=== PATIENT | female | born 1995 | race Caucasian/White ===

== ENCOUNTER 2017-07-24 22:28 | Emergency (ER) | payer OTHER ==
[2017-07-24 22:46] VITALS: RESP 18
[2017-07-24] MEDS ORDERED: SODIUM CHLORIDE 0.9% 1,000 ML IV ONE (23:32)
[2017-07-24] MEDS ORDERED: RX INFO: IV CONTRAST WAS GIVEN 1 EACH MISC MISCELLANE PRN (23:32)
--- NOTE | 2017-07-25 00:09 | ED ---
General Adult HPI - General Source: patient Mode of arrival: ambulatory Limitations: no limitations <Renetta Soto - Last Filed: 07/25/17 02:03> <Carri Avina - Last Filed: 07/25/17 05:02> - General Chief complaint: Abdominal Pain Stated complaint: Abd Pain Time Seen by Provider: 07/24/17 22:48 - History of Present Illness Initial comments: Patient is a 22-year-old obese female with no significant past medical history who presents to the emergency department for evaluation of sudden onset of low abdominal pain. Patient reports that around 8:30 tonight she had the sudden onset of severe stabbing pain in her low abdomen, she reports that the pain was so intense she began to feel lightheaded and her vision darkened. Patient does report a history of syncopal events in the past. Patient reports the pain then resolved however he felt she needed to come to the emergency department for further evaluation. Patient does report that intermittently she is having waves of lower abdominal pain which occur without provocation resolve within seconds to minutes. She reports prior to onset of this pain she was in her usual state of health. She had a normal diet with him about her normal daily activities. Pain is associated with nausea, lightheadedness, near syncope. His any fevers, chills, dysuria, hematuria, change in bowel or bladder habits, chest pain, shortness of breath, palpitations. She reports she is on the differential shot for control that she hasn't had a menstrual cycle in a number of years. She has no previous history of any intra-abdominal pathologies or surgeries. (Renetta Soto) - Related Data Home Medications Medication Instructions Recorded Confirmed predniSONE 20 mg PO DAILY 07/24/17 07/24/17 Previous Rx's Medication Instructions Recorded Acetaminophen-Codeine 300-30mg 1 tab PO Q4H PRN #12 tablet 07/25/17 [Tylenol #3] Ciprofloxacin HCl [Cipro] 500 mg PO Q12HR 7 Days 07/25/17 metroNIDAZOLE [Flagyl] 500 mg PO TID 7 Days 07/25/17 Allergies Allergy/AdvReac Type Severity Reaction Status Date / Time No Known Allergies Allergy Verified 07/24/17 23:09 Review of Systems ROS Other: All systems not noted in ROS Statement are negative. Constitutional: Denies: fever, chills Eyes: Reports: vision change ENT: Denies: throat pain Respiratory: Denies: cough, dyspnea Cardiovascular: Denies: chest pain, palpitations Endocrine: Denies: fatigue Gastrointestinal: Reports: abdominal pain, nausea, vomiting. Denies: diarrhea, constipation, hematemesis, melena, hematochezia Genitourinary: Denies: urgency, dysuria, frequency, hematuria, discharge, abnormal menses Musculoskeletal: Denies: back pain Skin: Denies: rash, lesions Neurological: Denies: headache, weakness Psychiatric: Denies: anxiety, depression Hematological/Lymphatic: Denies: easy bleeding, easy bruising <Renetta Soto - Last Filed: 07/25/17 02:03> ROS Other: All systems not noted in ROS Statement are negative. <Carri Avina - Last Filed: 07/25/17 05:02> ROS Statement: Those systems with pertinent positive or pertinent negative responses have been documented in the HPI. Past Medical History Past Medical History: No Reported History History of Any Multi-Drug Resistant Organisms: None Reported Past Surgical History: No Surgical Hx Reported Past Psychological History: No Psychological Hx Reported Smoking Status: Never smoker Past Alcohol Use History: None Reported Past Drug Use History: None Reported - Past Family History Father Family Medical History: Diabetes Mellitus <Renetta Soto P - Last Filed: 07/25/17 02:03> General Exam Limitations: no limitations General appearance: alert, in no apparent distress Head exam: Present: atraumatic, normocephalic, normal inspection Eye exam: Present: normal appearance, PERRL, EOMI. Absent: scleral icterus, conjunctival injection, periorbital swelling ENT exam: Present: normal exam Neck exam: Present: normal inspection Respiratory exam: Present: normal lung sounds bilaterally. Absent: respiratory distress Cardiovascular Exam: Present: regular rate, normal rhythm GI/Abdominal exam: Present: soft. Absent: distended, tenderness, guarding Rectal exam: Present: deferred Extremities exam: Present: normal inspection, normal capillary refill Back exam: Present: normal inspection. Absent: CVA tenderness (R), CVA tenderness (L) Neurological exam: Present: alert, oriented X3 Psychiatric exam: Present: normal affect Skin exam: Present: warm, dry <Renetta Soto - Last Filed: 07/25/17 02:03> Medical Decision Making - Lab Data Result diagrams: 07/25/17 00:18 07/25/17 00:18 <Renetta Soto - Last Filed: 07/25/17 02:03> - Lab Data Result diagrams: 07/25/17 00:18 07/25/17 00:18 - Radiology Data Radiology results: report reviewed <Carri Avina - Last Filed: 07/25/17 05:02> - Medical Decision Making Patient was seen and evaluated Vital signs were reviewed History was obtained from the patient History of the sudden onset suprapubic abdominal pain causing the patient to have near-syncope History is concerning for possible ovarian torsion D torsion versus colicky pain secondary to kidney stone versus acute appendicitis versus gas pain At this time I will evaluate the patient with CBC, CMP, urinalysis, urine , transvaginal ultrasound as well as a computed tomography scan Labs with mild leukocytosis, urinalysis clean, patient not Patient care is signed out to Carri Avina PA-C who will follow-up on patient 's imaging and reevaluate the patient (Renetta Soto) this patient was reevaluated and is resting comfortably in bed. Patient CT abdomen and pelvis was showing evidence of possible colitis. It did take approximately 2 hours to receive the ultrasound report. It was never sent over by the radiologist. Eventually the radiologist did call me reports that he she had a normal transvaginal ultrasound. At this time I'll treat the patient for colitis. Discussed that could be infectious etiology as well as autoimmune relation. Patient will be started on Cipro and Flagyl. Discussed that she should follow-up with GI specialist. Discussed return to emergency department if any alarming signs or symptoms occur. Discussed clear liquid diet and return to the emergency department if any alarming signs symptoms occur. ( Carri Avina) - Lab Data Lab Results 07/25/17 07/25/17 07/25/17 Range/Units 00:18 00:18 00:18 WBC 10.7 H (3.8-10.6) k/uL RBC 4.50 (3.80-5.40) m/uL Hgb 13.6 (11.4-16.0) gm/dL Hct 41.7 (34.0-46.0) % MCV 92.7 (80.0-100.0) fL MCH 30.2 (25.0-35.0) pg MCHC 32.5 (31.0-37.0) g/dL RDW 13.7 (11.5-15.5) % Plt Count 337 (150-450) k/uL Neutrophils % 75 % Lymphocytes % 14 % Monocytes % 6 % Eosinophils % 3 % Basophils % 1 % Neutrophils # 8.0 H (1.3-7.7) k/uL Lymphocytes # 1.5 (1.0-4.8) k/uL Monocytes # 0.7 (0-1.0) k/uL Eosinophils # 0.3 (0-0.7) k/uL Basophils # 0.1 (0-0.2) k/uL Sodium 140 (137-145) mmol/L Potassium 4.3 (3.5-5.1) mmol/L Chloride 103 (98-107) mmol/L Carbon Dioxide 26 (22-30) mmol/L Anion Gap 11 mmol/L BUN 13 (7-17) mg/dL Creatinine 0.80 (0.52-1.04) mg/dL Est GFR (MDRD) Af Amer >60 (>60 ml/min/1.73 sqM) Est GFR (MDRD) Non-Af >60 (>60 ml/min/1.73 sqM) Glucose 107 H (74-99) mg/dL Calcium 9.3 (8.4-10.2) mg/dL Total Bilirubin 0.4 (0.2-1.3) mg/dL AST 18 (14-36) U/L ALT 31 (9-52) U/L Alkaline Phosphatase 65 (38-126) U/L Total Protein 7.1 (6.3-8.2) g/dL Albumin 4.1 (3.5-5.0) g/dL Urine Color Urine Appearance (Clear) Urine pH (5.0-8.0) Ur Specific Elliott (1.001-1.035) Urine Protein (Negative) Urine Glucose (UA) (Negative) Urine Ketones (Negative) Urine Blood (Negative) Urine Nitrite (Negative) Urine Bilirubin (Negative) Urine Urobilinogen (<2.0) mg/dL Ur Leukocyte Esterase (Negative) Urine HCG, Qual Not Detected (Not Detectd) 07/25/17 Range/Units 00:18 WBC (3.8-10.6) k/uL RBC (3.80-5.40) m/uL Hgb (11.4-16.0) gm/dL Hct (34.0-46.0) % MCV (80.0-100.0) fL MCH (25.0-35.0) pg MCHC (31.0-37.0) g/dL RDW (11.5-15.5) % Plt Count (150-450) k/uL Neutrophils % % Lymphocytes % % Monocytes % % Eosinophils % % Basophils % % Neutrophils # (1.3-7.7) k/uL Lymphocytes # (1.0-4.8) k/uL Monocytes # (0-1.0) k/uL Eosinophils # (0-0.7) k/uL Basophils # (0-0.2) k/uL Sodium (137-145) mmol/L Potassium (3.5-5.1) mmol/L Chloride (98-107) mmol/L Carbon Dioxide (22-30) mmol/L Anion Gap mmol/L BUN (7-17) mg/dL Creatinine (0.52-1.04) mg/dL Est GFR (MDRD) Af Amer (>60 ml/min/1.73 sqM) Est GFR (MDRD) Non-Af (>60 ml/min/1.73 sqM) Glucose (74-99) mg/dL Calcium (8.4-10.2) mg/dL Total Bilirubin (0.2-1.3) mg/dL AST (14-36) U/L ALT (9-52) U/L Alkaline Phosphatase (38-126) U/L Total Protein (6.3-8.2) g/dL Albumin (3.5-5.0) g/dL Urine Color Yellow Urine Appearance Clear (Clear) Urine pH 6.0 (5.0-8.0) Ur Specific Elliott 1.022 (1.001-1.035) Urine Protein Negative (Negative) Urine Glucose (UA) Negative (Negative) Urine Ketones Negative (Negative) Urine Blood Negative (Negative) Urine Nitrite Negative (Negative) Urine Bilirubin Negative (Negative) Urine Urobilinogen 2.0 (<2.0) mg/dL Ur Leukocyte Esterase Negative (Negative) Urine HCG, Qual (Not Detectd) - Radiology Data Borderline thickening of the wall of the sigmoid colon and could relate nonspecific colitis. Clinical correlation recommended. No evidence of renal stone or obstruction. (Carri Avina) Disposition <Renetta Soto Abelardo - Last Filed: 07/25/17 02:03> Time of Disposition: 03:53 <Carri Avina - Last Filed: 07/25/17 05:02> Clinical Impression: Colitis Disposition: HOME SELF-CARE Condition: Good Additional Instructions: patient advised to rest, increase fluids. Recommended clear liquid diet. Return to the emergency department if any alarming signs or symptoms occur. Complete her antibiotic prescription. Prescriptions: Acetaminophen-Codeine 300-30mg [Tylenol #3] 1 tab PO Q4H PRN #12 tablet PRN Reason: Pain Ciprofloxacin HCl [Cipro] 500 mg PO Q12HR 7 Days metroNIDAZOLE [Flagyl] 500 mg PO TID 7 Days Referrals: Asim Wise MD [Primary Care Provider] - 1-2 days Cameron Quiñonez MD [STAFF PHYSICIAN] - 1-2 days
[2017-07-25 00:29] LABS: Appearance,Urine Clear (Clear); Bilirubin,Urine Negative (Negative); Glucose,Urine (UA) Negative (Negative); Ketones,Urine Negative (Negative); Leukocyte Esterase,Urine Negative (Negative); Nitrite,Urine Negative (Negative); Protein,Urine Negative (Negative); Specific Gravity,Urine 1.022 (1.001-1.035); UA Billing (MACRO vs. MICRO) CHEM
[2017-07-25 00:32] LABS: Basophils # (A) 0.1 k/uL (0-0.2); Basophils % (A) 1 %; CH 30.8; CHCM 33.4; Eosinophils # (A) 0.3 k/uL (0-0.7); Eosinophils % (A) 3 %; HCT 41.7 % (34.0-46.0); HDW 2.28; HGB 13.6 gm/dL (11.4-16.0); Luc # (Auto) 0.15; Luc % (Auto) 1; Lymphocytes # (A) 1.5 k/uL (1.0-4.8); Lymphocytes % (A) 14 %; MCH 30.2 pg (25.0-35.0); MCHC 32.5 g/dL (31.0-37.0); MCV 92.7 fL (80.0-100.0); Mean Platelet Volume 7.5; Monocytes # (A) 0.7 k/uL (0-1.0); Monocytes % (A) 6 %; Neutrophils % (A) 75 %; RDW 13.7 % (11.5-15.5); WBC 10.7 k/uL (3.8-10.6); WBC (Perox) 10.56
[2017-07-25 00:45] LABS: ALT 31 U/L (9-52); AST 18 U/L (14-36); Alkaline Phosphatase 65 U/L (38-126); Anion Gap 11 mmol/L; Blood Urea Nitrogen 13 mg/dL (7-17); Calcium 9.3 mg/dL (8.4-10.2); Carbon Dioxide 26 mmol/L (22-30); Chloride 103 mmol/L (98-107); Glucose 107 mg/dL (74-99); Non-African American GFR(MDRD) >60 (>60 ml/min/1.73 sqM); Potassium 4.3 mmol/L (3.5-5.1); Sodium 140 mmol/L (137-145); Total Bilirubin 0.4 mg/dL (0.2-1.3); Total Protein 7.1 g/dL (6.3-8.2)
--- NOTE | 2017-07-25 02:20 | CT ---
EXAMINATION TYPE: CT abdomen pelvis w con DATE OF EXAM: 07/25/2017 COMPARISON: NONE HISTORY: lower abd pain, vomiting CT DLP: 837.50 mGycm Automated exposure control for dose reduction was used. TECHNIQUE: Helical acquisition of images was performed from the lung bases through the pelvis. CONTRAST: Performed without Oral Contrast and with IV Contrast, patient injected with 100 mL of Omnipaque 300. FINDINGS: Lung bases are clear. There is no pleural effusion. Liver spleen pancreas gallbladder appear normal. Bile ducts are not dilated. There is no adrenal mass . Kidneys show satisfactory contrast opacification. There is no hydronephrosis. There is no retroperi toneal adenopathy. There is no ascites. There is small umbilical hernia that contains fat. Appendix i s not seen. There is no sign of appendicitis. There is borderline wall thickening of the sigmoid colon. Bladder distends smoothly. There is no sign of a pelvic mass. I see no bony destructive process. IMPRESSION: THERE IS BORDERLINE THICKENING OF THE WALL OF THE SIGMOID COLON THAT COULD RELATE TO NONSPECIFIC COLI TIS. CLINICAL CORRELATION IS RECOMMENDED. NO EVIDENCE OF RENAL STONE OR OBSTRUCTION.
[2017-07-25 03:50] VITALS: BP 120/56; PULSE 83; TEMP 98.3
[2017-07-25] MEDS ORDERED: metroNIDAZOLE 500 MG TAB PO STA (03:52)
[2017-07-25] MEDS ORDERED: CIPROFLOXACIN HCL 500 MG TAB PO STA (03:52)
--- NOTE | 2017-07-25 07:59 | US ---
EXAMINATION TYPE: US transvaginal DATE OF EXAM: 07/25/2017 COMPARISON: NONE CLINICAL HISTORY: Pain. Pelvic pain TECHNIQUE: Transvaginal (TV) Date of LMP: unsure EXAM MEASUREMENTS: Uterus: 6.6 x 2.6 x 5.0 cm Endometrial Stripe: 0.50 cm Right Ovary: 2.6 x 2.1 x 2.0 cm Left Ovary: 2.8 x 1.8 x 2.5 cm 1. Uterus: Anteverted wnl 2. Endometrium: wnl 3. Right Ovary: wnl 4. Left Ovary: wnl Spectral, color and waveform doppler imaging shows good arterial and venous flow within the ovaries ; there is no evidence for ovarian torsion. 5. Bilateral Adnexa: wnl 6. Posterior cul-de-sac: wnl IMPRESSION: Normal transvaginal pelvic sonogram. No evidence of ovarian torsion. Normal uterus and endometrium.
== END 2017-07-25 04:13 | disposition home or self-care (01) ==
LOC: EC 22:28
DX: K52.9 Noninfective gastroenteritis and colitis, unspecified (principal); R42 Dizziness and giddiness; R55 Syncope and collapse; R11.0 Nausea; D72.829 Elevated white blood cell count, unspecified; E66.9 Obesity, unspecified; Z68.26 Body mass index [BMI] 26.0-26.9, adult; Z79.52 Long term (current) use of systemic steroids
CPT/HCPCS: 99284 ×2; 96360 ×3; 96361 ×2; 36415; 80053; 85025; 81003; 81025; 93975; 76830; 74177; Q9967

== ENCOUNTER 2019-01-05 07:33 | Outpatient (CLI) | payer OTHER, BC ==
[2019-01-05 08:25] VITALS: BP 131/63; RESP 18; TEMP 98.6
[2019-01-05 08:36] VITALS: PULSE 98
--- NOTE | 2019-01-14 08:05 | P.MSEPDOC ---
Presenting Problems - Arrival Data Date of Arrival on Unit: 01/05/19 Time of Arrival on Unit: 07:30 Mode of Transport: Ambulatory - Complaint OB-Reason for Admission/Chief Complaint: Rule Out PROM Comment: States she has bee leaking since 0500 Medical History - Information : 2 Para: 1 Term: 1 : 0 Abortions: Spontaneous or Elective: 0 Number of Living Children: 1 - Gestational Age Gestational Age by LUIS (wks/days): 36 Weeks and 4 Days Review of Systems - Review of Systems Constitutional: No problems Breast: No problems ENT: No problems Cardiovascular: No problems Respiratory: No problems Gastrointestinal: No problems Genitourinary: No problems Musculoskeletal: No problems Neurological: No problems Skin: No problems Vital Signs - Temperature Temperature: 98.6 F Temperature Source: Temporal Artery Scan - Pulse Right Pulse Oximetery Pulse Rate: 98 Pulse Assessment Method: Pulse Oximetry - Respirations Respiratory Rate: 18 Oxygen Delivery Method: Room Air O2 Sat by Pulse Oximetry: 98 - Blood Pressure Right Arm Blood Pressure: 131/63 Blood Pressure Mean: 85 Blood Pressure Source: Automatic Cuff Medical Screen Scoring (Pre) - Cervical Exam Dilation: 1-3 cm = 1 Membranes: Intact - Uterine Contractions Frequency: N/A Duration: N/A Intensity: N/A - Maternal Vital Signs Maternal Temperature: N/A Maternal Blood Pressure: N/A Signs of Preeclampsia: N/A Maternal Respirations: N/A - Pain Assessment Pain Location and Character: Lower, Back Pain Scale Used: Numeric (1 - 10) Pain Intensity: 3 Pain Management Goal: 0 Pain Description: Aching Pain Frequency: Constant Pain Duration: 48 Pain Duration Units: Hours Pain Behavior: Vocalization Effects of Pain: longer time completing tasks Pain Aggravating Factors: Standing Non-Pharmacological Interventions: Position/Reposition - Maternal Trauma Maternal Trauma: N/A - Assessment Baseline FHR: 145 Heart Rate - NICHD Category: Category I (Normal) = 0 NST: Reactive Position: N/A - Total Score Total Score (Pre): 1 Physician Notification (Pre) - Physician Notified Physician Notified Date: 01/05/19 Physician Notified Time: 08:10 Physician/Practitioner Notifed:: Dr. Bruno Spoke With: Dr. Bruno New Order Received: Yes - Notification Comment Comment: Complete SVE and call with results. Disposition - Disposition OB Disposition: Physician follow up in office, Discharge to home Discharge Date: 01/05/19 Discharge Time: 08:34 I agree with the RN Medical Screening Exam: Yes Risk & Benefit of care provided described in d/c instruction: Yes Diagnosis: FALSE LABOR BEFORE 37 COMPLETED WEEKS OF GEST, THIRD TRI
== END 2019-01-05 08:27 | disposition home or self-care (01) ==
LOC: FBPOP 07:33
PROVIDERS: ATTEND Obstetrics & Gynecology
DX: O47.03 False labor before 37 completed weeks of gestation, third trimester (principal); Z3A.36 36 weeks gestation of pregnancy
CPT/HCPCS: 59025; 99213

== ENCOUNTER 2019-01-13 07:22 | Outpatient (CLI) | payer OTHER, BC ==
[2019-01-13 08:01] VITALS: BP 110/72; PULSE 87; RESP 14; TEMP 97.8
--- NOTE | 2019-02-16 09:10 | P.MSEPDOC ---
Presenting Problems - Arrival Data Date of Arrival on Unit: 01/13/19 Time of Arrival on Unit: 07:35 Mode of Transport: Ambulatory - Complaint OB-Reason for Admission/Chief Complaint: Possible Onset of Labor Comment: pt reports contractions from this morning at 4 am Medical History - Information : 2 Para: 1 Term: 1 : 0 Abortions: Spontaneous or Elective: 0 Number of Living Children: 1 - Gestational Age Gestational Age by LUIS (wks/days): 37 Weeks and 5 Days Review of Systems - Review of Systems Constitutional: No problems Breast: No problems ENT: No problems Cardiovascular: No problems Respiratory: No problems Gastrointestinal: No problems Genitourinary: No problems Musculoskeletal: No problems Neurological: No problems Skin: No problems Vital Signs - Temperature Temperature: 97.8 F Temperature Source: Oral - Pulse Right Brachial Pulse Rate: 87 Pulse Assessment Method: Automatic Cuff - Respirations Respiratory Rate: 14 Oxygen Delivery Method: Room Air - Blood Pressure Right Arm Blood Pressure: 110/72 Blood Pressure Mean: 84 Blood Pressure Source: Automatic Cuff Medical Screen Scoring (Pre) - Cervical Exam Dilation: 1-3 cm = 1 Membranes: Intact - Uterine Contractions Frequency: > 5 minutes apart = 1 - Maternal Vital Signs Maternal Temperature: N/A Maternal Blood Pressure: N/A Signs of Preeclampsia: N/A Maternal Respirations: N/A - Pain Assessment Pain Scale Used: Numeric (1 - 10) Pain Intensity: 4 Pain Description: *Acute Pain Frequency: Occasional Pain Duration Units: Hours Pain Behavior: None Exhibited Pain Aggravating Factors: Contractions - Assessment Baseline FHR: 140 Heart Rate - NICHD Category: Category I (Normal) = 0 NST: Reactive Position: N/A Station: N/A - Total Score Total Score (Pre): 2 - Level of Risk Level of Risk: Low (0-5) Physician Notification (Pre) - Physician Notified Physician Notified Date: 01/13/19 Physician Notified Time: 08:08 Physician/Practitioner Notifed:: rachael Spoke With: rachael New Order Received: Yes - Notification Comment Comment: dr cano in department, reported pt visit with cervical exam, reactive nst. orders to discharged pt Disposition - Disposition OB Disposition: Physician follow up in office, Discharge to home Discharge Date: 01/13/19 Discharge Time: 08:20 I agree with the RN Medical Screening Exam: Yes Risk & Benefit of care provided described in d/c instruction: Yes Diagnosis: FALSE LABOR AT OR AFTER 37 COMPLETED WEEKS OF GESTATION
== END 2019-01-13 08:20 | disposition home or self-care (01) ==
LOC: FBPOP 07:22
PROVIDERS: ATTEND Obstetrics & Gynecology
DX: O47.1 False labor at or after 37 completed weeks of gestation (principal); Z3A.37 37 weeks gestation of pregnancy
CPT/HCPCS: 59025; 99213

== ENCOUNTER 2019-01-29 06:05 | Inpatient (IN) | payer BC, OTHER ==
[2019-01-29] MEDS ORDERED: LIDOCAINE 0.5% (PF) 5 MG/ML (50 ML SDV) SQ PRN (06:19)
[2019-01-29] MEDS ORDERED: CARBOPROST TROMETHAMINE 250 MCG/ML 1 ML AMP IM PRN (06:19)
[2019-01-29] MEDS ORDERED: OXYTOCIN 10 UNIT/ML 1 ML VIAL IM PRN (06:19)
[2019-01-29] MEDS ORDERED: TERBUTALINE 1 MG/ML VIAL SQ PRN (06:19)
[2019-01-29] MEDS ORDERED: METHYLERGONOVINE 0.2 MG/ML 1 ML AMP IM PRN (06:19)
[2019-01-29] MEDS ORDERED: OXYTOCIN 30 UNITS/500 ML NS 30 UNIT in SALINE 1 500ML.BAG IV SCH (06:30)
[2019-01-29 06:59] VITALS: BMI 30.7
[2019-01-29] MEDS: LACTATED RINGERS 1,000 ML IV SCH (07:02)
[2019-01-29 07:04] LABS: Basophils # (A) 0.1 k/uL (0-0.2); Basophils % (A) 1 %; Eosinophils # (A) 0.2 k/uL (0-0.7); Eosinophils % (A) 2 %; HCT 34.8 % (34.0-46.0); HGB 11.9 gm/dL (11.4-16.0); Lymphocytes # (A) 1.9 k/uL (1.0-4.8); Lymphocytes % (A) 22 %; MCH 30.2 pg (25.0-35.0); MCHC 34.2 g/dL (31.0-37.0); MCV 88.4 fL (80.0-100.0); Mean Platelet Volume 7.7; Monocytes # (A) 0.5 k/uL (0-1.0); Monocytes % (A) 5 %; Neutrophils # (A) 5.9 k/uL (1.3-7.7); Neutrophils % (A) 69 %; Platelet Count 308 k/uL (150-450); RBC 3.93 m/uL (3.80-5.40); RDW 13.6 % (11.5-15.5); WBC 8.5 k/uL (3.8-10.6)
--- NOTE | 2019-01-29 07:51 | P.HPOB ---
History of Present Illness H&P Date: 01/29/19 This is a 24-year-old white female 2 para 1001 EDC 01/29/2019 at 40 weeks gestation. Patient presents today for induction with favorable multiparous cervix. Fetus is been active throughout the . She denies vaginal bleeding or fluid leakage. history significant for blood type A+, rubella status immune. Group B strep cultures negative. VDRL, gonorrhea cultures, Chlamydia cultures, group B strep culture all negative. Hepatitis B surface antigen negative. Rubella st atus immune. One-hour Glucola 112. Past surgical history significant for colposcopy and wisdom teeth extracted. Current medications Zofran 4 mg when necessary, vitamin daily. ALLERGIES include ciprofloxacin to which reports her tongue and mouth swelling and hives, levofloxacin to which reports the same. Family history significant for diabetes mellitus, hypertension, thyroid issues. Social history patient is single, she works at [employer], she is been a nonsmoker and denies drug use. Obstetric history significant for normal spontaneous vaginal delivery 7 lbs. 13 oz. female in 2016. On exam this is a pleasant white female, 5 foot 9 inches, 208 pounds, blood pressure 114/70, vital signs are stable. The general physical exam is within normal limits. The cervix is 3-4 cm dilated, 70% effaced, -2 station, vertex presentation. Artificial amniorrhexis reveals clear fluid. heart rate is consistent with reactive NST. No maternal edema is noted. Impression: 40 week intrauterine , favorable multiparous cervix, here for elective induction of labor. All signs reassuring. Plan: Oxytocin per hospital protocol. Analgesic options have been reviewed with the patient. Close maternal and surveillance. Anticipate normal spontaneous vaginal delivery. Review of Systems Constitutional: Reports as per HPI Past Medical History Past Medical History: No Reported History History of Any Multi-Drug Resistant Organisms: None Reported Past Surgical History: No Surgical Hx Reported Additional Past Surgical History / Comment(s): wisdom teeth removed Past Anesthesia/Blood Transfusion Reactions: Unable to Obtain Additional Past Anesthesia/Blood Transfusion Reaction / Comment(s): no previous blood transfusion Past Psychological History: No Psychological Hx Reported Smoking Status: Never smoker Past Alcohol Use History: None Reported Past Drug Use History: None Reported - Past Family History Father Family Medical History: Diabetes Mellitus Medications and Allergies Home Medications Medication Instructions Recorded Confirmed Type Pedi Multivit No.25/Folic Acid 2 tab PO DAILY 01/13/19 01/29/19 History [Flintstones Multivit Chew Tab] Allergies Allergy/AdvReac Type Severity Reaction Status Date / Time ciprofloxacin [From Cipro] Allergy Anaphylaxis Verified 01/29/19 06:18 Exam Vital Signs Temp Pulse Resp BP Pulse Ox 01/29/19 06:50 96.0 F L 83 16 114/70 98 Intake and Output 01/28/19 01/29/19 01/29/19 22:59 06:59 14:59 Other: Weight 94.347 kg See dictation under HPI. Results Result Diagrams: 01/29/19 06:30 Assessment and Plan Assessment: 40 week intrauterine . Here for elective induction of labor, all signs reassuring. Plan: Close maternal and surveillance. Oxytocin per hospital protocol. Anticipating normal spontaneous vaginal delivery. Time with Patient: Less than 30
[2019-01-29] MEDS ORDERED: ROPIVACAINE 5MG/ML 20ML VIAL ONE (10:30)
[2019-01-29] MEDS ORDERED: fentaNYL (PF) 50 MCG/ML 5 ML AMP ONE (10:30)
[2019-01-29] MEDS ORDERED: SODIUM CHLORIDE 0.9% 100 ML BAG ONE (10:30)
[2019-01-29] MEDS ORDERED: ZOLPIDEM 5 MG TAB PO PRN (12:13)
[2019-01-29] MEDS ORDERED: BENZOCAINE/MENTHOL SPRAY 1 GM/SPRAY AEROSOL TOPICAL PRN (12:13)
[2019-01-29] MEDS ORDERED: diphenhydrAMINE 50 MG/ML 1 ML VIAL IVP PRN ×2 (12:13)
[2019-01-29] MEDS ORDERED: ACETAMINOPHEN TAB 325 MG TAB PO PRN (12:13)
[2019-01-29] MEDS ORDERED: diphenhydrAMINE ELIXIR 25 MG/10 ML CUP PO PRN (12:13)
[2019-01-29] MEDS ORDERED: SIMETHICONE 80 MG CHEWABLE PO PRN (12:13)
[2019-01-29] MEDS ORDERED: diphenhydrAMINE 25 MG CAP PO PRN (12:13)
[2019-01-29] MEDS ORDERED: LANOLIN CREAM 5 GM TUBE TOPICAL PRN (12:13)
[2019-01-29] MEDS ORDERED: diphenhydrAMINE 50 MG CAP PO PRN (12:13)
[2019-01-29] MEDS ORDERED: WITCH HAZEL 1 EACH MED..PAD TOPICAL PRN (12:13)
[2019-01-29] MEDS ORDERED: HYDROCORTISONE 2.5% RECTAL CREAM 30 GM TUBE RECTAL PRN (12:13)
--- NOTE | 2019-01-29 12:13 | P.PROBDLV ---
Vaginal Delivery Note - . Vaginal Delivery Note: This is a 24-year-old female 2 para 1001 EDC 01/30/1940 weeks gestation. Patient presented this morning for induction with favorable multiparous cervix. essentially unremarkable, rubella immune, group B strep cultures negative, blood type A positive. Please see my dictated history and physical for details. Artificial amniorrhexis earlier this morning revealed clear fluid. Oxytocin was started and titrated per hospital protocol. Patient became uncomfortable and requested epidural, this was placed without difficulty. She progressed well through the first stage of labor, heart tones were reassuring. She became completely dilated at 1145 hrs. and the second stage of labor started at that time. In usual sterile fashion. With excellent maternal expulsive efforts infant's head delivered occiput anterior and he restituted accordingly. There was no nuchal cord noted. The left or anterior shoulder was gently and easily delivered from underneath the pubic symphysis at which time the oropharynx, nasopharynx, and external nares were all bulb suctioned. Patient was officially delivered of a liveborn male infant at 1155 hours. Umbilical cord was doubly clamped and ligated, he was handed to waiting nurses for evaluation where scores of 9 and 9 at one and 5 minutes respectively were given. At this time the uterus was massaged. The placenta delivered spontaneously, it was inspected and noted to be intact with trivascular cord at 1200 hrs. The cervix, vagina, perineum, periurethral, and perirectal areas are all closely inspected. There are no lacerations or defects. Fundus is firm and in the midline, symmetric and 18 week size upon completion of delivery. All sponge needle and enhancement counts are correct. weighs 7 lbs. 11 oz. or 3480 g. The patient and her family are allowed to begin the bonding experience in the LDR. They are requesting circumcision further infant son.
[2019-01-29] MEDS ORDERED: OXYTOCIN 20 UNITS/1000 ML NS 1,000 ML IV SCH (12:15)
[2019-01-29] MEDS: SENNOSIDES-DOCUSATE SODIUM 1 EACH TAB PO SCH (21:43)
[2019-01-29] MEDS: IBUPROFEN 600 MG TAB PO PRN (21:45)
[2019-01-29 22:52] VITALS: RESP 16
[2019-01-29 23:40] VITALS: PULSE 71
[2019-01-30] MEDS: IBUPROFEN 600 MG TAB PO PRN ×2 (03:46→09:37)
[2019-01-30] MEDS: LACTATED RINGERS 1,000 ML IV SCH (04:40)
--- NOTE | 2019-01-30 06:41 | P.DS ---
Providers Date of admission: 01/29/19 06:05 Expected date of discharge: 01/30/19 Attending physician: Tash Bruno Primary care physician: [facility] Hospital Course: This is a 24-year-old female 2 para 1001 EDC 01/29/2018 at 40 weeks gestation. Patient presented for induction with favorable multiparous cervix. was unremarkable, rubella status immune, be strep cultures negative. Please see my dictated history and physical for details. Patient was admitted, artificial amniorrhexis revealed clear fluid. Oxytocin was started and titrated per hospital protocol. Epidural was placed per her request. She went on to deliver a liveborn male infant with scores of 9 and 9 at one and 5 minutes respectively. weighed 7 lbs. 11 oz. or 3480 g. There was an estimated blood loss recorded of 250 mL, no lacerations. Please see dictated delivery note for details. This morning the patient is doing well. She is voiding, ambulating and passing flatus without difficulty. Vital signs are stable and she is afebrile. [place] is doing well, circumcision will be performed at this time. Patient is judged to be in very good condition for discharge home. She will follow-up in the office with me in 6 weeks. I have reminded her no intercourse, tampons or douching. She will use [id number] Advil or Aleve, or Motrin, as directed by the bottle, up to 600 mg every 6 hours. She will call me with any fevers shakes or chills, foul smelling or copious lochia, with the passage of large blood clots, with any pain not alleviated by [id number] products, or indeed with any concerns. Breast-feeding is going well. We have briefly reviewed options for contraception and we will discuss this further in the office in 6 weeks. Patient Condition at Discharge: Good Plan - Discharge Summary Discharge Rx Participant: No New Discharge Prescriptions: No Action Pedi Multivit No.25/Folic Acid [Flintstones Multivit Chew Tab] 2 tab PO DAILY Discharge Medication List Pedi Multivit No.25/Folic Acid [Flintstones Multivit Chew Tab] 2 tab PO DAILY 01/13/19 [History] Follow up Appointment(s)/Referral(s): Tash Bruno MD [STAFF PHYSICIAN] - 6 Weeks Discharge Disposition: HOME SELF-CARE
[2019-01-30 08:58] VITALS: BP 91/45; TEMP 98.5
[2019-01-30] MEDS: SENNOSIDES-DOCUSATE SODIUM 1 EACH TAB PO SCH (09:37)
== END 2019-01-30 13:10 | disposition home or self-care (01) | DRG 807 ==
LOC: 4FBP 06:05
PROVIDERS: ADMIT Obstetrics & Gynecology; ATTEND Obstetrics & Gynecology
PROC: 10E0XZZ Delivery of Products of Conception, External Approach (ICD-10-PCS; principal; 2019-01-29)
PROC: 10907ZC Drainage of Amniotic Fluid, Therapeutic from Products of Conception, Via Natural or Artificial Opening (ICD-10-PCS; 2019-01-29)
PROC: 3E033VJ Introduction of Other Hormone into Peripheral Vein, Percutaneous Approach (ICD-10-PCS; 2019-01-29)
PROC: 00HU33Z Insertion of Infusion Device into Spinal Canal, Percutaneous Approach (ICD-10-PCS; 2019-01-29)
PROC: 3E0R3BZ Introduction of Anesthetic Agent into Spinal Canal, Percutaneous Approach (ICD-10-PCS; 2019-01-29)
DX: O80 Encounter for full-term uncomplicated delivery (principal); Z37.0 Single live birth; Z3A.40 40 weeks gestation of pregnancy; Z88.1 Allergy status to other antibiotic agents; Z82.49 Family history of ischemic heart disease and other diseases of the circulatory system; Z83.3 Family history of diabetes mellitus; Z83.49 Family history of other endocrine, nutritional and metabolic diseases
CPT/HCPCS: 85025; 86850; 86900; 86901

== ENCOUNTER 2020-07-15 12:50 | Outpatient (CLI) | payer BC ==
[2020-07-15 13:56] VITALS: BP 129/65; PULSE 105; RESP 16; TEMP 98.1
--- NOTE | 2020-08-11 08:46 | P.MSEPDOC ---
Presenting Problems - Arrival Data Date of Arrival on Unit: 07/15/20 Time of Arrival on Unit: 12:50 Mode of Transport: Ambulatory - Complaint OB-Reason for Admission/Chief Complaint: Other Comment: rash on both legs Medical History - Information : 3 Para: 2 Term: 2 : 0 Abortions: Spontaneous or Elective: 0 Number of Living Children: 2 - Gestational Age Gestational Age by LUIS (wks/days): 34 Weeks and 3 Days Review of Systems - Review of Systems Constitutional: No problems Breast: No problems ENT: No problems Cardiovascular: No problems Respiratory: No problems Gastrointestinal: No problems Genitourinary: No problems Musculoskeletal: No problems Neurological: No problems Skin: Rash, Itching Vital Signs - Temperature Temperature: 98.1 F Temperature Source: Oral - Pulse Bilateral Pulse Rate: 105 Pulse Assessment Method: Automatic Cuff - Respirations Respiratory Rate: 16 Oxygen Delivery Method: Room Air - Blood Pressure Right Arm Blood Pressure: 129/65 Blood Pressure Mean: 86 Blood Pressure Source: Automatic Cuff Medical Screen Scoring (Pre) - Cervical Exam Dilation: Exam Deferred Effacement: Exam Deferred Membranes: Intact - Uterine Contractions Frequency: N/A Duration: N/A Intensity: N/A - Maternal Vital Signs Maternal Temperature: N/A Maternal Blood Pressure: N/A Signs of Preeclampsia: N/A Maternal Respirations: N/A - Maternal Trauma Maternal Trauma: N/A - Assessment - Baby A Baseline FHR: 125 Heart Rate - NICHD Category: Category I (Normal) = 0 NST: Reactive Position: N/A Station: N/A - Total Score - Baby A Total Score - Baby A: 0 - Total Score - Baby B Total Score - Baby B: 0 - Total Score - Baby C Total Score - Baby C: 0 - Level of Risk - Baby A Level of Risk - Baby A: Low (0-5) - Level of Risk - Baby B Level of Risk - Baby B: Low (0-5) - Level of Risk - Baby C Level of Risk - Baby C: Low (0-5) Physician Notification (Pre) - Physician Notified Physician Notified Date: 07/15/20 Physician Notified Time: 13:13 New Order Received: Yes - Notification Comment Comment: d/c home to see medical doctor for rash Disposition - Disposition OB Disposition: Physician follow up in office, Discharge to home Discharge Date: 07/15/20 Discharge Time: 13:16 I agree with the RN Medical Screening Exam: Yes Risk & Benefit of care provided described in d/c instruction: Yes Diagnosis: RELATED CONDITIONS, UNSPECIFIED, THIRD TRIMESTER
== END 2020-07-15 14:03 | disposition home or self-care (01) ==
LOC: FBPOP 12:50
PROVIDERS: ATTEND Obstetrics & Gynecology
DX: O26.93 Pregnancy related conditions, unspecified, third trimester (principal); Z3A.34 34 weeks gestation of pregnancy
CPT/HCPCS: 59025; 99213

== ENCOUNTER 2020-07-15 13:26 | Emergency (ER) | payer BC, OTHER ==
[2020-07-15 13:32] VITALS: PULSE 90; RESP 16; TEMP 98.5
--- NOTE | 2020-07-15 14:14 | ED ---
Skin/Abscess/FB HPI - General Chief complaint: Skin/Abscess/Foreign Body Stated complaint: Rash - 34 wks preg Time Seen by Provider: 07/15/20 13:43 Source: patient, RN notes reviewed, old records reviewed Mode of arrival: ambulatory Limitations: no limitations - History of Present Illness Initial comments: This is a 25-year-old female DF for evaluation patient Dese for evaluation regarding bilateral lower currently rash. Patient outpatient lab testing and was seen and evaluated by [facility] [employer] for PE. Patient just, patient has bilateral lower extremities for evaluation of a severely itchy rash denying recent hot tub use, patient did shave legs. MD complaint: rash (Bilateral lower extremities.) -: days(s) Tetanus Up to Date: yes (Y) Location: LLE (On now), RLE Severity: moderate Severity scale (1-10): 5 (I I I had retractions take is likely show pupils) Consistency: constant Improves with: none Worsens with: none (R) Context: recent illness Associated symptoms: fever ( does a lot of phone number oldest ) Treatments Prior to Arrival: none - Related Data Home Medications Medication Instructions Recorded Confirmed Pedi Multivit No.25/Folic Acid 2 tab PO DAILY 01/13/19 07/15/20 [Flintstones Multivit Chew Tab] Previous Rx's Medication Instructions Recorded Amoxic-Pot Clav 875-125Mg 1 tab PO Q12HR #20 tablet 07/15/20 [Augmentin 875-125] Allergies Allergy/AdvReac Type Severity Reaction Status Date / Time ciprofloxacin [From Cipro] Allergy Anaphylaxis Verified 07/15/20 13:32 Review of Systems ROS Statement: Those systems with pertinent positive or pertinent negative responses have been documented in the HPI. ROS Other: All systems not noted in ROS Statement are negative. Past Medical History Past Medical History: No Reported History History of Any Multi-Drug Resistant Organisms: None Reported Past Surgical History: No Surgical Hx Reported Additional Past Surgical History / Comment(s): wisdom teeth removed Past Anesthesia/Blood Transfusion Reactions: Unable to Obtain Additional Past Anesthesia/Blood Transfusion Reaction / Comment(s): no previous blood transfusion Past Psychological History: No Psychological Hx Reported Smoking Status: Never smoker Past Alcohol Use History: None Reported Past Drug Use History: None Reported - Past Family History Father Family Medical History: Diabetes Mellitus General Exam Limitations: no limitations General appearance: alert, in no apparent distress Head exam: Present: atraumatic, normocephalic, normal inspection Eye exam: Present: normal appearance, PERRL, EOMI. Absent: scleral icterus, conjunctival injection, periorbital swelling ENT exam: Present: normal exam, mucous membranes moist Neck exam: Present: normal inspection. Absent: tenderness, meningismus, lymphadenopathy Respiratory exam: Present: normal lung sounds bilaterally. Absent: respiratory distress, wheezes, rales, rhonchi, stridor Cardiovascular Exam: Present: regular rate, normal rhythm, normal heart sounds. Absent: systolic murmur, diastolic murmur, rubs, gallop, clicks GI/Abdominal exam: Present: soft, normal bowel sounds. Absent: distended, tenderness, guarding, rebound, rigid Extremities exam: Present: normal inspection, full ROM, normal capillary refill. Absent: tenderness, pedal edema, joint swelling, calf tenderness Back exam: Present: normal inspection Neurological exam: Present: alert, oriented X3, CN II-XII intact Psychiatric exam: Present: normal affect, normal mood Skin exam: Present: warm, dry, intact, normal color, erythema, other (Patient does have significant bilateral lower Shorty rash with drainage and papular, pus tules). Absent: rash Course Vital Signs 07/15/20 13:30 Temperature 98.5 F Pulse Rate 90 Respiratory 16 Rate Blood Pressure 114/72 O2 Sat by Pulse 98 Oximetry - Reevaluation(s) Reevaluation #1: 07/15/20 15:17 Medical records reviewed Reevaluation #2: 07/15/20 15:17 Patient does have symptomatic treatment, itching is improved Reevaluation #3: 07/15/20 15:17 Spoke with patient regarding decision-making process, will follow up with OB Medical Decision Making - Medical Decision Making 25 female bilateral lower lower extremity folliculitis. Patient be treated for antibiotics, can be discharged home Disposition Clinical Impression: Folliculitis Narrative: BL LE Folliculitis Disposition: HOME SELF-CARE Condition: Good Instructions (If sedation given, give patient instructions): Folliculitis (ED) Prescriptions: Amoxic-Pot Clav 875-125Mg [Augmentin 875-125] 1 tab PO Q12HR #20 tablet Is patient prescribed a controlled substance at d/c from ED?: No Referrals: Nonstaff,Physician [Primary Care Provider] - 1-2 days
[2020-07-15] MEDS ORDERED: AMOXIC-POT CLAV 875MG STARTER PACK 2 TAB BTL PO STA (15:09)
[2020-07-15] MEDS ORDERED: AMOXIC-POT CLAV 875-125MG 1 EACH TAB PO STA (15:09)
[2020-07-15] MEDS ORDERED: MUPIROCIN 2% OINT 22 GM TUBE TOPICAL STA (15:21)
[2020-07-15 15:27] VITALS: BP 103/65
[2020-07-15] MEDS ORDERED: MUPIROCIN 2% OINT 22 GM TUBE TOPICAL SCH (16:00)
== END 2020-07-15 15:32 | disposition home or self-care (01) ==
LOC: EC 13:26
DX: O99.713 Diseases of the skin and subcutaneous tissue complicating pregnancy, third trimester (principal); L73.9 Follicular disorder, unspecified; Z3A.34 34 weeks gestation of pregnancy; Z88.1 Allergy status to other antibiotic agents
CPT/HCPCS: 99283

== ENCOUNTER 2020-08-14 14:41 | Inpatient (IN) | payer BC, OTHER ==
[2020-08-14] MEDS ORDERED: TERBUTALINE 1 MG/ML VIAL SQ PRN (15:05)
[2020-08-14] MEDS ORDERED: LIDOCAINE 0.5% (PF) 5 MG/ML (50 ML SDV) SQ PRN (15:05)
[2020-08-14] MEDS ORDERED: OXYTOCIN 10 UNIT/ML 1 ML VIAL IM PRN (15:05)
[2020-08-14] MEDS ORDERED: CARBOPROST TROMETHAMINE 250 MCG/ML 1 ML AMP IM PRN (15:05)
[2020-08-14] MEDS ORDERED: METHYLERGONOVINE 0.2 MG/ML 1 ML AMP IM PRN (15:05)
[2020-08-14] MEDS ORDERED: LACTATED RINGERS 1,000 ML IV SCH ×2 (15:15)
[2020-08-14] MEDS ORDERED: OXYTOCIN 30 UNITS/500 ML NS 30 UNIT in SALINE 1 500ML.BAG IV SCH (15:15)
[2020-08-14 15:21] LABS: Basophils # (A) 0.1 k/uL (0-0.2); Basophils % (A) 1 %; Eosinophils # (A) 0.2 k/uL (0-0.7); Eosinophils % (A) 1 %; HCT 36.7 % (34.0-46.0); HGB 12.4 gm/dL (11.4-16.0); Lymphocytes # (A) 1.8 k/uL (1.0-4.8); Lymphocytes % (A) 13 %; MCH 31.7 pg (25.0-35.0); MCHC 33.7 g/dL (31.0-37.0); MCV 93.9 fL (80.0-100.0); Mean Platelet Volume 7.7; Monocytes # (A) 0.5 k/uL (0-1.0); Monocytes % (A) 4 %; Neutrophils # (A) 11.2 k/uL (1.3-7.7); Neutrophils % (A) 81 %; Platelet Count 291 k/uL (150-450); RBC 3.91 m/uL (3.80-5.40); RDW 13.3 % (11.5-15.5); WBC 13.8 k/uL (3.8-10.6)
[2020-08-14] MEDS ORDERED: SODIUM CHLORIDE 0.9% 100 ML BAG ONE (15:34)
[2020-08-14] MEDS ORDERED: fentaNYL (PF) 50 MCG/ML 5 ML AMP ONE (15:34)
[2020-08-14] MEDS ORDERED: ROPIVACAINE 5MG/ML 20ML VIAL ONE (15:34)
--- NOTE | 2020-08-14 16:49 | P.HPOB ---
History of Present Illness H&P Date: 08/14/20 Chief Complaint: IUP @ 38 5/7 weeks, labor This is a 25-year-old 3 para 2001 at 38-5/7 weeks that presents to labor and delivery with regular painful contractions. Patient states she started sima around 9 AM, patient's noted contractions to increase in strength and frequency around 2 PM therefore presented to labor and delivery. Patient denied vaginal bleeding, loss of fluid, notes good movement. 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 She denies any current lesions. On blood work she has a blood type of A+, rubella immune, RPR nonreactive, B surface antigen negative, HIV negative, she did pass her 1 hour gestational diabetes screen group beta strep was negative on 07/26. Review of Systems Constitutional: Denies chills, Denies fatigue, Denies fever Ears, nose, mouth and throat: Denies headache Cardiovascular: Reports leg edema Respiratory: Denies dyspnea Gastrointestinal: Denies constipation, Denies diarrhea, Denies nausea, Denies vomiting Genitourinary: Reports Past Medical History Past Medical History: No Reported History History of Any Multi-Drug Resistant Organisms: None Reported Past Surgical History: No Surgical Hx Reported Additional Past Surgical History / Comment(s): wisdom teeth removed Past Anesthesia/Blood Transfusion Reactions: Unable to Obtain Additional Past Anesthesia/Blood Transfusion Reaction / Comment(s): no previous blood transfusion Past Psychological History: No Psychological Hx Reported Smoking Status: Never smoker Past Alcohol Use History: None Reported Past Drug Use History: None Reported - Past Family History Father Family Medical History: Diabetes Mellitus Medications and Allergies Home Medications Medication Instructions Recorded Confirmed Type Pedi Multivit No.25/Folic Acid 2 tab PO DAILY 01/13/19 08/14/20 History [Flintstones Multivit Chew Tab] valACYclovir [Valtrex] 500 mg PO DAILY 08/14/20 08/14/20 History Allergies Allergy/AdvReac Type Severity Reaction Status Date / Time ciprofloxacin [From Cipro] Allergy Anaphylaxis Verified 08/14/20 15:04 Exam Osteopathic Statement: *. No significant issues noted on an osteopathic structural exam other than those noted in the History and Physical/Consult. Intake and Output 08/14/20 08/14/20 08/14/20 06:59 14:59 22:59 Other: Weight 87.09 kg Targeted physical exam was performed and state in general is a well-nourished well-developed female in no acute distress, breathing is noted to be nonlabored, heart has regular rate and rhythm, abdomen is gravid and appropriate for gestational age on cervical exam she is 6/90/-2 amniotomy is performed and clear fluid was obtained. heart tones returned be category 1 and she is sima every 5 minutes. Results Result Diagrams: 08/14/20 15:10 Abnormal Lab Results - Last 24 Hours (Table) 08/14/20 Range/Units 15:10 WBC 13.8 H (3.8-10.6) k/uL Neutrophils # 11.2 H (1.3-7.7) k/uL Assessment and Plan (1) Active labor at term Current Visit: No Status: Acute Code(s): IGC7527 - SNOMED Code(s): 35579880 Plan: This 25-year-old 3 para 2001 at 38-5/7 weeks presents with regular painful contractions. Patient was noted to be 5 cm upon admission. Patient was admitted epidural was placed per patient request. Amniotomy is performed clear fluid was obtained. And states spontaneous vaginal delivery.
[2020-08-14] MEDS ORDERED: diphenhydrAMINE 50 MG CAP PO PRN (18:27)
[2020-08-14] MEDS ORDERED: HYDROCORTISONE 2.5% RECTAL CREAM 30 GM TUBE RECTAL PRN (18:27)
[2020-08-14] MEDS ORDERED: LANOLIN CREAM 5 GM TUBE TOPICAL PRN (18:27)
[2020-08-14] MEDS ORDERED: ZOLPIDEM 5 MG TAB PO PRN (18:27)
[2020-08-14] MEDS ORDERED: SIMETHICONE 80 MG CHEWABLE PO PRN (18:27)
[2020-08-14] MEDS ORDERED: diphenhydrAMINE 25 MG CAP PO PRN (18:27)
[2020-08-14] MEDS ORDERED: diphenhydrAMINE 50 MG/ML 1 ML VIAL IVP PRN ×2 (18:27)
[2020-08-14] MEDS ORDERED: BENZOCAINE/MENTHOL SPRAY 1 GM/SPRAY AEROSOL TOPICAL PRN (18:27)
[2020-08-14] MEDS ORDERED: OXYTOCIN 20 UNITS/1000 ML NS 1,000 ML IV SCH (18:30)
--- NOTE | 2020-08-14 18:30 | P.PROBDLV ---
Vaginal Delivery Note - . Vaginal Delivery Note: This is a 25-year-old 3 para 2001 at 38-5/7 weeks that presents to labor and delivery with complaints of regular painful contractions. Patient was noted to be 5 cm on admission. Patient was admitted to labor and delivery patient requested epidural placement. Epidural was placed without difficulty by the anesthesia department. Patient underwent amniotomy clear fluid was obtained. Patient progressed to complete began pushing and had a normal spontaneous v aginal delivery of a viable male infant at 1816, weight of 7 lbs. 1 oz. with Apgars of 9 and 9 at one and 5 minutes or sexually. A loose nuchal cord was delivered through. After two-minute delayed the umbilical cord was doubly clamped and cut. The placenta was delivered spontaneously intact with a three- vessel cord being noted. After delivery of the placenta the uterus is noted to be firm and below the umbilicus. Estimated blood loss 100 mL. All counts were noted to be correct 2 at the delivery. Patient and tolerated delivery well and are resting comfortably.
[2020-08-14] MEDS: IBUPROFEN 600 MG TAB PO PRN (18:42)
[2020-08-14] MEDS: SENNOSIDES-DOCUSATE SODIUM 1 EACH TAB PO SCH ×2 (21:03→23:33)
[2020-08-14] MEDS: ACETAMINOPHEN TAB 325 MG TAB PO PRN (23:33)
[2020-08-15] MEDS: IBUPROFEN 600 MG TAB PO PRN (04:04)
[2020-08-15] MEDS ORDERED: MULTIVITAMINS, THERA 1 EACH TAB PO SCH (09:00)
[2020-08-15] MEDS: ACETAMINOPHEN TAB 325 MG TAB PO PRN (09:09)
[2020-08-15] MEDS: SENNOSIDES-DOCUSATE SODIUM 1 EACH TAB PO SCH (09:10)
[2020-08-15 09:19] VITALS: RESP 18
--- NOTE | 2020-08-15 09:38 | P.DS ---
Providers Date of admission: 08/14/20 14:59 Expected date of discharge: 08/15/20 Attending physician: Tash Bruno Primary care physician: Stated None Hospital Course: This is a 25 rolled white female 3 para 2001 EDC 08/23/2020 at 38-5/7 weeks' gestation. Patient presented from home with strong regular uterine contractions, in active labor. is remarkable for history of HSV, on Valtrex daily, no prodrome symptoms or lesions at time of admission. Blood type A positive, rubella status immune. Group B strep cultures negative. Please see dictated history and physical for details. Patient went on to quickly deliver a liveborn male with scores of 9 and 9 at one and 5 minutes respectively. There was a nuchal cord 1 that was reduced. No lacerations. weighed 3200 g or 7 lbs. 1 oz. Please see dictated delivery note for details. This morning the patient is doing well. She is voiding, bleeding, passing flatus without difficulty. Vital signs are stable and she is afebrile. Fundus is firm and in the midline, symmetric and 18 week size. Extremities are negative for edema. Breast-feeding is going well. Patient is judged to be in very good condition for discharge home. She'll follow-up with me in the office in 6 weeks. I have reminded her no intercourse, Tampons or douching. She will use [id number] Advil or Aleve as needed for pain. She will call with any fevers shakes or chills, foul smelling or copious lochia, with the passage of large blood clots, with any pain not alleviated by [id number] products, or indeed with any concerns. We have briefly discussed contraceptive options and we will discuss this further in the office. Assessment: Doing well day #1 Patient Condition at Discharge: Good Plan - Discharge Summary New Discharge Prescriptions: No Action Pedi Multivit No.25/Folic Acid [Flintstones Multivit Chew Tab] 2 tab PO DAILY valACYclovir [Valtrex] 500 mg PO DAILY Discharge Medication List Pedi Multivit No.25/Folic Acid [Flintstones Multivit Chew Tab] 2 tab PO DAILY 01/13/19 [History] valACYclovir [Valtrex] 500 mg PO DAILY 08/14/20 [History]
[2020-08-15] MEDS ORDERED: ROPIVACAINE 100 MG, fentaNYL (PF) 200 MCG in SODIUM CHLORIDE 0.9% 76 ML EPIDURAL ONE (11:43)
[2020-08-15 16:33] VITALS: BP 128/78; PULSE 73; TEMP 97.9
--- NOTE | 2020-08-17 07:31 | P.MSEPDOC ---
Presenting Problems - Arrival Data Date of Arrival on Unit: 08/14/20 Time of Arrival on Unit: 14:40 Mode of Transport: Ambulatory - Complaint OB-Reason for Admission/Chief Complaint: Possible Onset of Labor Comment: contractions since 929 Medical History - Information : 3 Para: 2 Term: 2 : 0 Abortions: Spontaneous or Elective: 0 Number of Living Children: 2 - Gestational Age Gestational Age by LUIS (wks/days): 38 Weeks and 5 Days - History Sexually Transmitted Diseases: HSV Comment: prophylactic Valtrex Review of Systems - Review of Systems Constitutional: No problems Breast: No problems ENT: No problems Cardiovascular: No problems Respiratory: No problems Gastrointestinal: No problems Genitourinary: No problems Musculoskeletal: No problems Neurological: No problems Skin: Rash Comment: pt has rash on skin, was told by doctor it is autoimmune Vital Signs - Temperature Temperature: 97.9 F Temperature Source: Oral - Pulse Right Pulse Rate: 73 Pulse Assessment Method: Automatic Cuff - Respirations Respiratory Rate: 18 Oxygen Delivery Method: Room Air - Blood Pressure Right Arm Blood Pressure: 128/78 Blood Pressure Mean: 94 Blood Pressure Source: Automatic Cuff Medical Screen Scoring (Pre) - Cervical Exam Dilation: 4-7 cm = 2 Effacement: More than 50% = 2 Membranes: Intact - Uterine Contractions Frequency: > or = 36 weeks =2 Duration: > 40 seconds = 2 Intensity: Contraction palpated strong = 1 - Maternal Vital Signs Maternal Temperature: N/A Maternal Blood Pressure: N/A Signs of Preeclampsia: N/A Maternal Respirations: N/A - Maternal Trauma Maternal Trauma: N/A - Assessment - Baby A Baseline FHR: 125 Heart Rate - NICHD Category: Category II (Indeterminate) = 3 NST: Reactive Position: N/A Station: N/A - Total Score - Baby A Total Score - Baby A: 12 - Total Score - Baby B Total Score - Baby B: 9 - Total Score - Baby C Total Score - Baby C: 9 - Level of Risk - Baby A Level of Risk - Baby A: High (10+) - Level of Risk - Baby B Level of Risk - Baby B: Medium (6-9) - Level of Risk - Baby C Level of Risk - Baby C: Medium (6-9) Physician Notification (Pre) - Physician Notified Physician Notified Date: 08/14/20 Physician Notified Time: 14:55 New Order Received: Yes (admit, may have epidural, call when placed) Disposition - Disposition OB Disposition: Admit, LDRP Suite Discharge Date: 08/15/20 Discharge Time: 19:58 I agree with the RN Medical Screening Exam: Yes Risk & Benefit of care provided described in d/c instruction: Yes Diagnosis: LOUSE-BORNE TYPHUS
== END 2020-08-15 19:59 | disposition home or self-care (01) | DRG 806 ==
LOC: FBPOP 14:41 → 4FBP 14:59
PROVIDERS: ADMIT Obstetrics & Gynecology Obstetrics; ATTEND Obstetrics & Gynecology
PROC: 3E0R3BZ Introduction of Anesthetic Agent into Spinal Canal, Percutaneous Approach (ICD-10-PCS; principal; 2020-08-14)
PROC: 10E0XZZ Delivery of Products of Conception, External Approach (ICD-10-PCS; principal; 2020-08-14)
PROC: 00HU33Z Insertion of Infusion Device into Spinal Canal, Percutaneous Approach (ICD-10-PCS; principal; 2020-08-14)
DX: O69.81X0 Labor and delivery complicated by cord around neck, without compression, not applicable or unspecified (principal); O98.52 Other viral diseases complicating childbirth; Z37.0 Single live birth; Z3A.38 38 weeks gestation of pregnancy; B00.9 Herpesviral infection, unspecified; Z83.3 Family history of diabetes mellitus
CPT/HCPCS: 85025; 86850; 86900; 86901

== ENCOUNTER 2020-12-13 01:03 | Emergency (ER) | payer BC, OTHER ==
[2020-12-13 01:12] VITALS: BP 115/94; PULSE 70; RESP 18; TEMP 98.2
[2020-12-13] MEDS ORDERED: IBUPROFEN 600 MG TAB PO STA (01:46)
--- NOTE | 2020-12-13 02:27 | XR ---
EXAM: XR Left Knee, 3 Views CLINICAL HISTORY: ITS.REASON XR Reason: Fall; knee injury TECHNIQUE: Three views of the left knee. COMPARISON: No relevant prior studies available. FINDINGS: Bones/joints: No acute fracture. No dislocation. Soft tissues: Unremarkable. IMPRESSION: No acute osseous abnormalities.
--- NOTE | 2020-12-13 02:30 | ED ---
Lower Extremity Injury HPI - General Chief Complaint: Extremity Injury, Lower Stated Complaint: Fall,Left Knee Pain Time Seen by Provider: 12/13/20 01:40 Source: patient Mode of arrival: wheelchair - History of Present Illness Initial Comments: 25 ruth ann-old female patient presents to the emergency department today for evaluation of left knee pain. Patient states this afternoon she was going out to get her daughter from the bus when she slipped on ice and fell injuring the knee. States the pain has been worsening throughout the night. States she does have some swelling and tenderness over the knee. Denies taking anything for pain. Denies history of injury to this knee. Denies hitting her head or losing consciousness with the fall. Denies any other injuries.Patient denies any headache, neck pain, back pain, chest pain, shortness of breath, dizziness, weakness, abdominal pain, nausea, vomiting, or difficulties with bowel movements or urination. - Related Data Home Medications Medication Instructions Recorded Confirmed Pedi Multivit No.25/Folic Acid 2 tab PO DAILY 01/13/19 08/14/20 [Flintstones Multivit Chew Tab] valACYclovir [Valtrex] 500 mg PO DAILY 08/14/20 08/14/20 Previous Rx's Medication Instructions Recorded Ibuprofen [Motrin] 600 mg PO Q8HR PRN #30 tab 12/13/20 Allergies Allergy/AdvReac Type Severity Reaction Status Date / Time ciprofloxacin [From Cipro] Allergy Anaphylaxis Verified 12/13/20 01:13 Review of Systems ROS Statement: Those systems with pertinent positive or pertinent negative responses have been documented in the HPI. ROS Other: All systems not noted in ROS Statement are negative. Past Medical History Past Medical History: No Reported History History of Any Multi-Drug Resistant Organisms: None Reported Past Surgical History: No Surgical Hx Reported Additional Past Surgical History / Comment(s): wisdom teeth removed Past Anesthesia/Blood Transfusion Reactions: Unable to Obtain Additional Past Anesthesia/Blood Transfusion Reaction / Comment(s): no previous blood transfusion Past Psychological History: No Psychological Hx Reported Smoking Status: Never smoker Past Alcohol Use History: None Reported Past Drug Use History: None Reported - Past Family History Father Family Medical History: Diabetes Mellitus General Exam General appearance: alert, in no apparent distress Neck exam: Present: normal inspection, full ROM, other (Nontender, no step-off, no deformity to firm midline palpation of the posterior cervical spine. Full range of motion without pain or limitation.). Absent: tenderness, meningismus, lymphadenopathy Respiratory exam: Present: normal lung sounds bilaterally. Absent: respiratory distress, wheezes, rales, rhonchi, stridor Cardiovascular Exam: Present: regular rate, normal rhythm, normal heart sounds. Absent: systolic murmur, diastolic murmur, rubs, gallop, clicks Extremities exam: Present: full ROM, tenderness (Over the medial aspect of the left knee), normal capillary refill, other (There is soft tissue swelling and tenderness noted over the medial aspect of the left knee. Patient does have full extension and flexion. Skin is otherwise pink, warm, dry. Cap refill less than 3 seconds. Pedal and posttibial pulses 2+.). Absent: normal inspection, pedal edema, joint swelling, calf tenderness Neurological exam: Present: alert, oriented X3, CN II-XII intact Psychiatric exam: Present: normal affect, normal mood Skin exam: Present: warm, dry, intact, normal color. Absent: rash Course Vital Signs 12/13/20 01:08 Temperature 98.2 F Pulse Rate 70 Respiratory 18 Rate Blood Pressure 115/94 O2 Sat by Pulse 97 Oximetry Medical Decision Making - Medical Decision Making 25-year-old female patient presented to the emergency department today for evaluation of injury to the left knee. Physical examination did reveal soft tissue swelling tenderness over the medial aspect of the knee. She has no laxity with valgus or varus maneuvers. She has full extension and flexion. X- rays were obtained and were negative. She is given ibuprofen. She is placed in an Venkat wrap and she is instructed to follow-up with her primary care physician for recheck in 1-2 days. She is urged discuss orthopedic referral for symptoms do not improve over the next 7 days. Return parameters discussed in detail. She verbalizes understanding and agrees with this plan. Case discussed with my attending Dr. Wang. - Radiology Data Radiology results: report reviewed, image reviewed 3 views of left knee are obtained. Report was reviewed in its entirety. Impression by Dr. Garnica shows no acute osseous abnormalities Disposition Clinical Impression: Left knee injury Disposition: HOME SELF-CARE Condition: Good Instructions (If sedation given, give patient instructions): Knee Pain (ED) Additional Instructions: Use Veknat wrap for comfort and support. Take ibuprofen as needed for pain control. Follow-up with the primary care physician for recheck in 1-2 days. Return to the emergency department for any new, worsening, or concerning symptoms. Prescriptions: Ibuprofen [Motrin] 600 mg PO Q8HR PRN #30 tab PRN Reason: Pain Is patient prescribed a controlled substance at d/c from ED?: No Referrals: None,Stated [Primary Care Provider] - 1-2 days Time of Disposition: 02:30
== END 2020-12-13 03:03 | disposition home or self-care (01) ==
LOC: EC 01:03
DX: S89.92XA Unspecified injury of left lower leg, initial encounter (principal); Z88.1 Allergy status to other antibiotic agents; W00.0XXA Fall on same level due to ice and snow, initial encounter
CPT/HCPCS: 99283

== ENCOUNTER 2021-03-05 20:17 | Emergency (ER) | payer BC, OTHER ==
[2021-03-05 20:29] VITALS: BP 120/78; PULSE 88; RESP 18; TEMP 98
--- NOTE | 2021-03-05 20:56 | ED ---
Skin/Abscess/FB HPI - General Chief complaint: Skin/Abscess/Foreign Body Stated complaint: Bilateral Leg Pain/Swelling/Rash Time Seen by Provider: 03/05/21 20:31 Source: patient Mode of arrival: ambulatory Limitations: no limitations - History of Present Illness Initial comments: 26-year-old female presenting to the ER today for chief complaint of rash on lower bilateral legs. Patient states that she had prurigo when she was . she states it is identical to rash she has today, and is itchy. pt states she is now worried she is . pt currently 6 months pp and is breast feeding states at home test was (-). Denies fevers. Patient has no additional complaints. - Related Data Home Medications Medication Instructions Recorded Confirmed Pedi Multivit No.25/Folic Acid 2 tab PO DAILY 01/13/19 08/14/20 [Flintstones Multivit Chew Tab] valACYclovir [Valtrex] 500 mg PO DAILY 08/14/20 08/14/20 Previous Rx's Medication Instructions Recorded Ibuprofen [Motrin] 600 mg PO Q8HR PRN #30 tab 12/13/20 Cephalexin [Keflex] 500 mg PO Q8HR 5 Days #15 cap 03/05/21 Hydrocortisone Oint 1 applic TOPICAL BID 7 Days #30 gm 03/05/21 [Hydrocortisone 2.5% Oint] Allergies Allergy/AdvReac Type Severity Reaction Status Date / Time ciprofloxacin [From Cipro] Allergy Anaphylaxis Verified 03/05/21 20:29 Review of Systems ROS Statement: Those systems with pertinent positive or pertinent negative responses have been documented in the HPI. ROS Other: All systems not noted in ROS Statement are negative. Past Medical History Past Medical History: No Reported History History of Any Multi-Drug Resistant Organisms: None Reported Past Surgical History: No Surgical Hx Reported Additional Past Surgical History / Comment(s): wisdom teeth removed Past Anesthesia/Blood Transfusion Reactions: Unable to Obtain Additional Past Anesthesia/Blood Transfusion Reaction / Comment(s): no previous blood transfusion Past Psychological History: Depression Smoking Status: Never smoker Past Alcohol Use History: None Reported Past Drug Use History: None Reported - Past Family History Father Family Medical History: Diabetes Mellitus General Exam - General Exam Comments Initial Comments: General: The patient is awake and alert, in no distress Eye: +3 mm pupils are equal, round and reactive to light, extra-ocular movements are intact. No nystagmus. There is normal conjunctiva bilaterally. No signs of icterus. Ears, nose, mouth and throat: There are moist mucous membranes and no oral lesions. Neurological: A&O x 3. CN II-XII intact, There are no obvious motor or sensory deficits. Coordination appears grossly intact. Speech is normal. Skin: Skin is warm and dry. Red papules at each follicle, pt scratching, no bullae no bruising/ecchymosis Psychiatric: Cooperative, appropriate mood & affect, normal judgment. Limitations: no limitations Course Vital Signs 03/05/21 20:26 Temperature 98.0 F Pulse Rate 88 Respiratory 18 Rate Blood Pressure 120/78 O2 Sat by Pulse 100 Oximetry Medical Decision Making - Medical Decision Making 26yo female prseenting for cc of leg rash. hx prurigo. appears consistent wtih folliculitis today. hcg (-). with pt hx will treat with oral abx and topical steroids. both of which are safe in breast feeding females. pt discharged appearing well with pcp f/u. - Lab Data Lab Results 03/05/21 Range/Units 20:35 Urine HCG, Qual Not Detected (Not Detectd) Disposition Clinical Impression: Prurigo Disposition: HOME SELF-CARE Condition: Good Instructions (If sedation given, give patient instructions): Folliculitis (ED) Additional Instructions: Please use medication as discussed. Please follow-up with family doctor in the next 2 days. Please return to emergency room if the symptoms increase or worsen or for any other concerns. Prescriptions: Hydrocortisone Oint [Hydrocortisone 2.5% Oint] 1 applic TOPICAL BID 7 Days #30 gm Cephalexin [Keflex] 500 mg PO Q8HR 5 Days #15 cap Is patient prescribed a controlled substance at d/c from ED?: No Referrals: Nonstaff,Physician [REFERRING] - 1-2 days Time of Disposition: 20:56
[2021-03-05] MEDS ORDERED: HYDROCORTISONE 1% CREAM 30 GM TUBE TOPICAL ONE (21:00)
== END 2021-03-05 21:11 | disposition home or self-care (01) ==
LOC: EC 20:17
DX: L28.2 Other prurigo (principal)
CPT/HCPCS: 81025; 99283

== ENCOUNTER 2021-06-15 11:54 | Emergency (ER) | payer BC, OTHER ==
[2021-06-15 12:01] VITALS: RESP 18; TEMP 98.6
[2021-06-15] MEDS ORDERED: ACETAMINOPHEN TAB 500 MG TAB PO STA (12:35)
[2021-06-15] MEDS ORDERED: SODIUM CHLORIDE 0.9% 1,000 ML IV STA (12:35)
[2021-06-15 13:07] LABS: Basophils # (A) 0.1 k/uL (0-0.2); Basophils % (A) 1 %; Eosinophils # (A) 0.2 k/uL (0-0.7); Eosinophils % (A) 2 %; HCT 35.8 % (34.0-46.0); HGB 12.8 gm/dL (11.4-16.0); Lymphocytes % (A) 25 %; MCHC 35.8 g/dL (31.0-37.0); MCV 89.3 fL (80.0-100.0); Mean Platelet Volume 7.6; Monocytes # (A) 0.4 k/uL (0-1.0); Monocytes % (A) 4 %; Neutrophils # (A) 5.3 k/uL (1.3-7.7); Neutrophils % (A) 67 %; Platelet Count 281 k/uL (150-450); RDW 13.5 % (11.5-15.5)
--- NOTE | 2021-06-15 13:14 | US ---
EXAMINATION TYPE: US kidneys/renal and bladder DATE OF EXAM: 06/15/2021 COMPARISON: NONE CLINICAL HISTORY: flank pain, 13 wks preg. Right flank pain. Patient just voided. EXAM MEASUREMENTS: Right Kidney: 10.0 x 4.9 x 3.6 cm Left Kidney: 9.6 x 4.4 x 5.7 cm Right Kidney: No hydronephrosis or masses seen Left Kidney: No hydronephrosis or masses seen Bladder: mildly distended, not well seen Bilateral Jets not seen There is no evidence for hydronephrosis at this point in time. No nephrolithiasis is seen. No rosana s are identified. The urinary bladder is anechoic. IMPRESSION: No evidence for hydronephrosis at this time.
[2021-06-15 13:15] LABS: Appearance,Urine Cloudy (Clear); Bacteria,Urine Rare /hpf; Bilirubin,Urine Negative (Negative); Blood,Urine Negative (Negative); Color,Urine Yellow; Glucose,Urine (UA) Negative (Negative); Hyaline Casts,Urine 1 /lpf (0-2); Ketones,Urine Negative (Negative); Leukocyte Esterase,Urine Negative (Negative); Mucus,Urine Moderate /hpf; Nitrite,Urine Negative (Negative); Protein,Urine Trace (Negative); RBC,Urine 1 /hpf (0-5); Specific Gravity,Urine 1.028 (1.001-1.035); Squamous Epithelial Cell,Urine 4 /hpf (0-4); Urobilinogen,Urine <2.0 mg/dL (<2.0); WBC,Urine 1 /hpf (0-5)
--- NOTE | 2021-06-15 13:17 | US ---
EXAMINATION TYPE: US OB limited DATE OF EXAM: 06/15/2021 COMPARISON: NONE CLINICAL HISTORY: tones only. FHT's only EXAM PERFORMED: Transabdominal (TA) GESTATIONAL AGE / DATING Physician Established: (13 weeks/2 days) EDC: 03/14/2021 No growth performed on today?s study per ordering physician LIE: Variable HEART RATE: 144 bpm RHYTHM: Normal IMPRESSION: Single viable intrauterine .
[2021-06-15 13:19] LABS: ALT 10 U/L (4-34); AST 20 U/L (14-36); African American GFR (CKD) >90 (>60 ml/min/1.73 sqM); Albumin 3.8 g/dL (3.5-5.0); Alkaline Phosphatase 43 U/L (38-126); Anion Gap 8 mmol/L; Blood Urea Nitrogen 7 mg/dL (7-17); Calcium 9.4 mg/dL (8.4-10.2); Carbon Dioxide 23 mmol/L (22-30); Chloride 105 mmol/L (98-107); Glucose 93 mg/dL (74-99); Non-African American GFR(CKD) >90 (>60 ml/min/1.73 sqM); Potassium 4.1 mmol/L (3.5-5.1); Sodium 136 mmol/L (137-145); Total Bilirubin 0.4 mg/dL (0.2-1.3); Total Protein 6.5 g/dL (6.3-8.2)
--- NOTE | 2021-06-15 14:11 | ED ---
Abdominal Pain HPI - General Chief Complaint: Abdominal Pain Stated Complaint: possible kidney stones, 13 wks preg Time Seen by Provider: 06/15/21 12:16 Source: patient Mode of arrival: ambulatory Limitations: no limitations - History of Present Illness Initial Comments: Patient is a 26-year-old female, currently 13 weeks , presenting to emergency Department with complaints of a headache over the past few days but also some right-sided lower back pain for the last few days as well. She states she called her [facility] ADMINISTRATOR who recommended coming to the ER for evaluation for possible kidney stone. She states she's never had a kidney stone before. She denies any abdominal pain, no vaginal bleeding or vaginal cramping. She states she's been having some nausea throughout this but otherwise has been uncomplicated thus far. [employer] ADMINISTRATOR is Dr. Bruno. She denies any dysuria or hematuria, she denies any fevers or chills, no falls or trauma. She has no further complaints at this time. Vital signs are stable upon arrival. - Related Data Home Medications Medication Instructions Recorded Confirmed Acetaminophen Tab [Tylenol Tab] 1,000 mg PO Q6HR PRN 06/15/21 06/15/21 Allergies Allergy/AdvReac Type Severity Reaction Status Date / Time ciprofloxacin [From Cipro] Allergy Anaphylaxis Verified 06/15/21 13:15 Review of Systems ROS Statement: Those systems with pertinent positive or pertinent negative responses have been documented in the HPI. ROS Other: All systems not noted in ROS Statement are negative. Past Medical History Past Medical History: No Reported History History of Any Multi-Drug Resistant Organisms: None Reported Past Surgical History: No Surgical Hx Reported Additional Past Surgical History / Comment(s): wisdom teeth removed Past Anesthesia/Blood Transfusion Reactions: Unable to Obtain Additional Past Anesthesia/Blood Transfusion Reaction / Comment(s): no previous blood transfusion Past Psychological History: Depression Smoking Status: Never smoker Past Alcohol Use History: None Reported Past Drug Use History: None Reported - Past Family History Father Family Medical History: Diabetes Mellitus General Exam - General Exam Comments Initial Comments: GENERAL: Patient is well-developed and well-nourished. Patient is nontoxic and in no acute distress. HEAD: Atraumatic, normocephalic. EYES: Pupils equal round and reactive to light, extraocular movements intact, sclera anicteric, conjunctiva are normal. Eyelids were unremarkable. ENT: Nares patent, oropharynx clear without exudates. Moist mucous membranes. NECK: Normal range of motion, supple without lymphadenopathy or JVD. LUNGS: Unlabored respirations. Breath sounds clear to auscultation bilaterally and equal. No wheezes rales or rhonchi. HEART: Regular rate and rhythm without murmurs, rubs or gallops. ABDOMEN: Soft, nontender, normoactive bowel sounds. No guarding, no rebound. No masses appreciated. : Deferred MUSCULOSKELETAL: Normal extremities with adequate strength and normal range of motion, no pitting or edema. No clubbing or cyanosis. Patient has some mild discomfort noted in the right lumbar paraspinals, no flank pain NEUROLOGICAL: Patient is alert and oriented x 3. Motor and sensory are also intact. Cranial nerves II through XII grossly intact. Symmetrical smile. Normal speech, normal gait. PSYCH: Normal mood, normal affect. SKIN: Warm, Dry, normal turgor, no rashes or lesions noted. Limitations: no limitations Course Vital Signs 06/15/21 11:57 Temperature 98.6 F Pulse Rate 88 Respiratory 18 Rate Blood Pressure 129/79 O2 Sat by Pulse 99 Oximetry Medical Decision Making - Medical Decision Making Patient is a 26-year-old female here, currently 13 weeks guarding, presenting with right-sided low back pain over the last few days as well as having a headache. She does occasionally get headaches, she normally takes Tylenol for these and they do go away. She didn't take any Tylenol today. Her vital signs are stable. No fevers, no abdominal pain or vaginal bleeding. Labs are unremarkable including normal white count, electrolytes are stable, urine shows no evidence of infection. Ultrasound of the kidneys and bladder revealed no evidence for hydronephrosis, no kidney stones are seen, no acute process. Ultrasound reveals a viable IUP with a heart rate of 144. Patient received some Tylenol and fluids, does report improvement in her symptoms. I discussed these findings with her periods most likely muscle skeletal strain. I recommended heat to the area, she may take Tylenol for discomfort as well as increase her fluids. She can follow up with her [employer] ADMINISTRATOR. She is agreeable to this plan of care and is stable for discharge. Case discussed Dr. Kinsey. - Lab Data Result diagrams: 06/15/21 12:48 06/15/21 12:48 Lab Results 06/15/21 06/15/21 06/15/21 Range/Units 12:48 12:48 12:48 WBC 8.0 (3.8-10.6) k/uL RBC 4.00 (3.80-5.40) m/uL Hgb 12.8 (11.4-16.0) gm/dL Hct 35.8 (34.0-46.0) % MCV 89.3 (80.0-100.0) fL MCH 32.0 (25.0-35.0) pg MCHC 35.8 (31.0-37.0) g/dL RDW 13.5 (11.5-15.5) % Plt Count 281 (150-450) k/uL MPV 7.6 Neutrophils % 67 % Lymphocytes % 25 % Monocytes % 4 % Eosinophils % 2 % Basophils % 1 % Neutrophils # 5.3 (1.3-7.7) k/uL Lymphocytes # 2.0 (1.0-4.8) k/uL Monocytes # 0.4 (0-1.0) k/uL Eosinophils # 0.2 (0-0.7) k/uL Basophils # 0.1 (0-0.2) k/uL Sodium 136 L (137-145) mmol/L Potassium 4.1 (3.5-5.1) mmol/L Chloride 105 (98-107) mmol/L Carbon Dioxide 23 (22-30) mmol/L Anion Gap 8 mmol/L BUN 7 (7-17) mg/dL Creatinine 0.64 (0.52-1.04) mg/dL Est GFR (CKD-EPI)AfAm >90 (>60 ml/min/1.73 sqM) Est GFR (CKD-EPI)NonAf >90 (>60 ml/min/1.73 sqM) Glucose 93 (74-99) mg/dL Plasma Lactic Acid Juan (0.7-2.0) mmol/L Calcium 9.4 (8.4-10.2) mg/dL Total Bilirubin 0.4 (0.2-1.3) mg/dL AST 20 (14-36) U/L ALT 10 (4-34) U/L Alkaline Phosphatase 43 (38-126) U/L Total Protein 6.5 (6.3-8.2) g/dL Albumin 3.8 (3.5-5.0) g/dL Urine Color Yellow Urine Appearance Cloudy H (Clear) Urine pH 6.0 (5.0-8.0) Ur Specific [place] 1.028 (1.001-1.035) Urine Protein Trace H (Negative) Urine Glucose (UA) Negative (Negative) Urine Ketones Negative (Negative) Urine Blood Negative (Negative) Urine Nitrite Negative (Negative) Urine Bilirubin Negative (Negative) Urine Urobilinogen <2.0 (<2.0) mg/dL Ur Leukocyte Esterase Negative (Negative) Urine RBC 1 (0-5) /hpf Urine WBC 1 (0-5) /hpf Ur Squamous Epith Cells 4 (0-4) /hpf Urine Bacteria Rare H (None) /hpf Hyaline Casts 1 (0-2) /lpf Urine Mucus Moderate H (None) /hpf 06/15/21 Range/Units 12:50 WBC (3.8-10.6) k/uL RBC (3.80-5.40) m/uL Hgb (11.4-16.0) gm/dL Hct (34.0-46.0) % MCV (80.0-100.0) fL MCH (25.0-35.0) pg MCHC (31.0-37.0) g/dL RDW (11.5-15.5) % Plt Count (150-450) k/uL MPV Neutrophils % % Lymphocytes % % Monocytes % % Eosinophils % % Basophils % % Neutrophils # (1.3-7.7) k/uL Lymphocytes # (1.0-4.8) k/uL Monocytes # (0-1.0) k/uL Eosinophils # (0-0.7) k/uL Basophils # (0-0.2) k/uL Sodium (137-145) mmol/L Potassium (3.5-5.1) mmol/L Chloride (98-107) mmol/L Carbon Dioxide (22-30) mmol/L Anion Gap mmol/L BUN (7-17) mg/dL Creatinine (0.52-1.04) mg/dL Est GFR (CKD-EPI)AfAm (>60 ml/min/1.73 sqM) Est GFR (CKD-EPI)NonAf (>60 ml/min/1.73 sqM) Glucose (74-99) mg/dL Plasma Lactic Acid Juan 1.3 (0.7-2.0) mmol/L Calcium (8.4-10.2) mg/dL Total Bilirubin (0.2-1.3) mg/dL AST (14-36) U/L ALT (4-34) U/L Alkaline Phosphatase (38-126) U/L Total Protein (6.3-8.2) g/dL Albumin (3.5-5.0) g/dL Urine Color Urine Appearance (Clear) Urine pH (5.0-8.0) Ur Specific [place] (1.001-1.035) Urine Protein (Negative) Urine Glucose (UA) (Negative) Urine Ketones (Negative) Urine Blood (Negative) Urine Nitrite (Negative) Urine Bilirubin (Negative) Urine Urobilinogen (<2.0) mg/dL Ur Leukocyte Esterase (Negative) Urine RBC (0-5) /hpf Urine WBC (0-5) /hpf Ur Squamous Epith Cells (0-4) /hpf Urine Bacteria (None) /hpf Hyaline Casts (0-2) /lpf Urine Mucus (None) /hpf Disposition Clinical Impression: Low back strain, Headache, Disposition: HOME SELF-CARE Condition: Stable Instructions (If sedation given, give patient instructions): Muscle Strain (ED) Additional Instructions: Please return to the Emergency Department if symptoms worsen or any other concerns. May apply heat and/or ice to the area, Tylenol for any discomfort. Please follow up with your [facility] ADMINISTRATOR. Is patient prescribed a controlled substance at d/c from ED?: No Referrals: Lien Owens MD [Primary Care Provider] - 1-2 days Tash Bruno MD [STAFF PHYSICIAN] - 1-2 days Time of Disposition: 14:11
[2021-06-15 15:56] VITALS: BP 113/78; PULSE 72
== END 2021-06-15 15:56 | disposition home or self-care (01) ==
LOC: EC 11:54
DX: O26.891 Other specified pregnancy related conditions, first trimester (principal); O99.891 Other specified diseases and conditions complicating pregnancy; R51.9 Headache, unspecified; F32.9 Major depressive disorder, single episode, unspecified; Z3A.13 13 weeks gestation of pregnancy; Z88.1 Allergy status to other antibiotic agents
CPT/HCPCS: 36415; 76770; 76815; 80053; 81001; 83605; 85025; 96360; 99284

== ENCOUNTER 2021-09-29 10:03 | Emergency (ER) | payer BC, OTHER ==
[2021-09-29] MEDS ORDERED: ALBUTEROL HFA INHALER INHALATION STA (10:22)
[2021-09-29] MEDS ORDERED: CASIRIVIMAB (REGN10933) (EUA) 600 MG, IMDEVIMAB (REGN10987) (EUA) 600 MG in SODIUM CHLO... IVPB ONE (11:00)
--- NOTE | 2021-09-29 11:02 | XR ---
EXAMINATION TYPE: XR chest 1V portable DATE OF EXAM: 09/29/2021 COMPARISON: 06/09/15 HISTORY: Chest pain TECHNIQUE: Single frontal view of the chest is obtained. FINDINGS: There is no focal air space opacity, pleural effusion, or pneumothorax seen. The cardiac silhouette size is within normal limits. The osseous structures are intact. IMPRESSION: 1. No acute process.
[2021-09-29 11:29] VITALS: RESP 18
[2021-09-29] MEDS ORDERED: SODIUM CHLORIDE 0.9% 50 ML IVPB ONE (11:30)
--- NOTE | 2021-09-29 11:54 | ED ---
General Adult HPI - General Chief complaint: Upper Respiratory Infection Stated complaint: Covid+, Time Seen by Provider: 09/29/21 10:18 Source: patient, RN notes reviewed Mode of arrival: ambulatory Limitations: no limitations - History of Present Illness Initial comments: 26-year-old female currently 28 weeks presents to the emergency room for a chief complaint of being covid positive. She states for the past 3 days she has not felt well. She has had a cough and congestion. She has lost her voice. No significant chest pain or shortness of breath. Patient states her doctor sent her in to check out the baby and get the antibodies.she denies any vaginal bleeding or pelvic cramping. Patient has no other complaints at this t [place] including shortness of breath, chest pain, abdominal pain, nausea or vomiting, headache, or visual changes. - Related Data Home Medications Medication Instructions Recorded Confirmed Acetaminophen Tab [Tylenol Tab] 1,000 mg PO Q6HR PRN 06/15/21 09/29/21 Amoxicillin 875 mg PO Q12HR 09/29/21 09/29/21 Previous Rx's Medication Instructions Recorded Albuterol Inhaler [Ventolin Hfa 2 puff INHALATION RT-QID PRN #8 gm 09/29/21 Inhaler] Allergies Allergy/AdvReac Type Severity Reaction Status Date / Time ciprofloxacin [From Cipro] Allergy Anaphylaxis Verified 09/29/21 11:36 levofloxacin [From Levaquin] Allergy Swelling Verified 09/29/21 11:37 Review of Systems ROS Statement: Those systems with pertinent positive or pertinent negative responses have been documented in the HPI. ROS Other: All systems not noted in ROS Statement are negative. Past Medical History Past Medical History: No Reported History History of Any Multi-Drug Resistant Organisms: None Reported Past Surgical History: No Surgical Hx Reported Additional Past Surgical History / Comment(s): wisdom teeth removed Past Anesthesia/Blood Transfusion Reactions: Unable to Obtain Additional Past Anesthesia/Blood Transfusion Reaction / Comment(s): no previous blood transfusion Past Psychological History: Depression Smoking Status: Never smoker Past Alcohol Use History: None Reported Past Drug Use History: None Reported - Past Family History Father Family Medical History: Diabetes Mellitus General Exam Limitations: no limitations General appearance: alert, in no apparent distress Head exam: Present: atraumatic Eye exam: Present: normal appearance, PERRL, EOMI. Absent: scleral icterus, conjunctival injection, nystagmus ENT exam: Present: normal exam, mucous membranes moist Neck exam: Present: normal inspection, full ROM. Absent: tenderness Respiratory exam: Present: normal lung sounds bilaterally. Absent: respiratory distress, wheezes Cardiovascular Exam: Present: regular rate, normal rhythm, normal heart sounds GI/Abdominal exam: Present: soft, normal bowel sounds. Absent: distended, tenderness Neurological exam: Present: alert Course Vital Signs 09/29/21 09/29/21 09/29/21 10:09 11:15 11:29 Temperature 98 F 97.8 F Pulse Rate 72 98 Respiratory 18 20 18 Rate Blood Pressure 107/66 107/78 O2 Sat by Pulse 100 98 Oximetry Medical Decision Making - Medical Decision Making Vitals Stable. Patient is 98-100% on room air. Patient has some slightly diminished lung sounds over no wheezing rales or rhonchi. Chest x-ray shows no acute process. Patient did retest positive for COVID-19 which was done in order to give her antibodies. These were given to patient and she was monitored or an hour afterward. Patient states her doctor Dr. Bruno told her she wanted her to make sure the baby was getting enough oxygen. Discussed this with Dr. Harrington, recommending NST. Unfortunately other mother baby cannot do this upstairs so will be done down here. Patient also stating her doctor wants her started on albuterol, we will get her an albuterol inhaler for home. Steroids not indicated at this point, no wheezing, no hypoxia from COVID. - Lab Data Lab Results 09/29/21 Range/Units 10:27 Coronavirus (PCR) Detected A (Not Detectd) Disposition Clinical Impression: COVID-19 Disposition: HOME SELF-CARE Condition: Good Instructions (If sedation given, give patient instructions): Coronavirus Disease 2019 (COVID-19) Additional Instructions: Please follow up with your doctor in 1-2 days. Return to the ER for any worsening symptoms. Prescriptions: Albuterol Inhaler [Ventolin Hfa Inhaler] 2 puff INHALATION RT-QID PRN #8 gm PRN Reason: Shortness Of Breath Is patient prescribed a controlled substance at d/c from ED?: No Referrals: Lien Owens MD [Primary Care Provider] - 1-2 days Time of Disposition: 11:52
[2021-09-29 13:34] VITALS: BP 105/68; PULSE 90; TEMP 98.2
== END 2021-09-29 13:33 | disposition home or self-care (01) ==
LOC: EC 10:03
DX: O98.513 Other viral diseases complicating pregnancy, third trimester (principal); U07.1 COVID-19; Z3A.28 28 weeks gestation of pregnancy; F32.A Depression, unspecified
CPT/HCPCS: 99283; 94640; 87635; 71045; Q0244

== ENCOUNTER 2021-12-11 16:12 | Outpatient (CLI) | payer BC, OTHER ==
[2021-12-11 18:01] VITALS: BP 122/65; PULSE 89; RESP 16; TEMP 97.2
--- NOTE | 2022-01-12 10:33 | P.MSEPDOC ---
Presenting Problems - Arrival Data Date of Arrival on Unit: 12/11/21 Time of Arrival on Unit: 16:12 Mode of Transport: Ambulatory - Complaint OB-Reason for Admission/Chief Complaint: Rule Out SROM Comment: pt reports experiencing two small "gushes" of fluid this afternoon. Medical History - Information : 4 Para: 3 Term: 3 : 0 Abortions: Spontaneous or Elective: 0 Number of Living Children: 3 - Gestational Age Gestational Age by LUIS (wks/days): 38 Weeks and 6 Days Review of Systems - Review of Systems Constitutional: No problems Breast: No problems ENT: No problems Cardiovascular: No problems Respiratory: No problems Gastrointestinal: No problems Genitourinary: No problems Musculoskeletal: No problems Neurological: No problems Skin: No problems Vital Signs - Temperature Temperature: 97.2 F - Pulse Right Brachial Pulse Rate: 89 Pulse Assessment Method: Automatic Cuff - Respirations Respiratory Rate: 16 - Blood Pressure Right Arm Blood Pressure: 122/65 Blood Pressure Mean: 84 Blood Pressure Source: Automatic Cuff Medical Screen Scoring - Cervical Exam Dilation (cm): 3 Effacement (%): 80 Station: -2 Membranes: Intact - Assessment - Baby A Baseline FHR: 135 Heart Rate - NICHD Category: Category I (Normal) Physician Notification - Physician Notified Physician Notified Date: 12/11/21 Physician Notified Time: 17:24 Physician: Malia Colbert Order Received: Yes - Notification Comment Comment: reported pts visit, negative amnisure, reactive nst, dilation and induction in AM. Maternal Triage Index - Maternal Triage Index Presenting for scheduled procedure w/no complaint: No - Stat/Priority 1 Stat Priority 1: No - Urgent/Priority 2 Urgent Priority 2: No - Prompt/Priority 3 Prompt Priority 3: No - Non-Urgent/Priority 4 Non-Urgent Priority 4: Yes Criteria Met for Priority 4: pt reports possible rom Disposition - Disposition OB Disposition: Physician follow up in office, Discharge to home Discharge Date: 12/11/21 Discharge Time: 17:42 I agree with the RN Medical Screening Exam: Yes Case reviewed; plan agreed upon as documented in EMR&OBIX.: Yes Comments: Patient was neither seen nor examined by me Diagnosis: FALSE LABOR AT OR AFTER 37 COMPLETED WEEKS OF GESTATION
== END 2021-12-11 17:47 ==
LOC: FBPOP 16:12
PROVIDERS: ATTEND Obstetrics & Gynecology
DX: O47.1 False labor at or after 37 completed weeks of gestation (principal); Z3A.38 38 weeks gestation of pregnancy; Z88.1 Allergy status to other antibiotic agents
CPT/HCPCS: 59025; 84112; 99213

== ENCOUNTER 2021-12-12 06:06 | Inpatient (IN) | payer BC, OTHER ==
[2021-12-12] MEDS ORDERED: OXYTOCIN 10 UNIT/ML 1 ML VIAL IM PRN (06:31)
[2021-12-12] MEDS ORDERED: TERBUTALINE 1 MG/ML VIAL SQ PRN (06:31)
[2021-12-12] MEDS ORDERED: METHYLERGONOVINE 0.2 MG/ML 1 ML AMP IM PRN (06:31)
[2021-12-12] MEDS ORDERED: CARBOPROST TROMETHAMINE 250 MCG/ML 1 ML AMP IM PRN (06:31)
[2021-12-12] MEDS ORDERED: LIDOCAINE 1% (PF) 10 MG/ML (30 ML SDV) SQ PRN (06:31)
[2021-12-12] MEDS ORDERED: OXYTOCIN 30 UNITS/500 ML NS 30 UNIT in SALINE 1 500ML.BAG IV SCH (06:45)
[2021-12-12] MEDS: LACTATED RINGERS 1,000 ML IV SCH (06:45)
[2021-12-12 07:30] LABS: Basophils # (A) 0.1 k/uL (0-0.2); Basophils % (A) 1 %; Eosinophils # (A) 0.1 k/uL (0-0.7); Eosinophils % (A) 2 %; HCT 35.1 % (34.0-46.0); Lymphocytes # (A) 2.1 k/uL (1.0-4.8); Lymphocytes % (A) 25 %; MCHC 34.1 g/dL (31.0-37.0); MCV 93.7 fL (80.0-100.0); Mean Platelet Volume 8.3; Monocytes # (A) 0.5 k/uL (0-1.0); Monocytes % (A) 6 %; Neutrophils # (A) 5.5 k/uL (1.3-7.7); Neutrophils % (A) 66 %; Platelet Count 279 k/uL (150-450); RBC 3.75 m/uL (3.80-5.40); WBC 8.4 k/uL (3.8-10.6)
--- NOTE | 2021-12-12 10:40 | P.HPOB ---
History of Present Illness H&P Date: 12/12/21 Chief Complaint: Here for elective induction of labor at term, favorable mul tiparous cervix. This is a 26-year-old white female 4 para 3003 EDC 12/19/2021 at 39 and one sevenths weeks' gestation. Patient has a history of HSV, on Valtrex daily, no outbreaks. She lives 1 hour from the hospital and has a history of fast labor. The favorable cervix we decided to proceed with elective induction this morning. She denies vaginal bleeding or fluid leakage. Past medical history is significant for diverticulosis, colitis, hypoglycemia. She also has a history of herpetic lesions in the distant past. Past surgical history colposcopy in the past, wisdom teeth extracted. Current medications vitamins daily, baby aspirin daily, Valtrex 500 mg daily Family history significant for hypertension and thyroid disorder, diabetes. Obstetric history is significant for normal spontaneous vaginal deliveries 3, all unremarkable. Social history patient works at a local [place], her boyfriend is involved and present. She is never been a tobacco smoker and denies alcohol or drug use. history is significant for negative group B strep cultures, blood type A+, rubella status immune. VDRL testing, hepatitis B surface antigen, urine culture, gonorrhea and chlamydia cultures, all negative. On exam patient is 5 foot 9 inches, 202 pounds, blood pressure 107/57, pulse 83. The general physical exam is within normal limits. Cervix is 4 cm dilated, 70% effaced, -2 station, vertex presentation. Artificial amniorrhexis reveals clear fluid. Internal scalp lead is applied for variable decelerations noted, no lead components reviewed heart rate is overall reassuring with excellent qcfv-tj-nuqb variability. Impression: 39 and one sevenths weeks intrauterine , here for induction of labor. History of HSV, on Valtrex, no active lesions. Plan: Oxytocin per hospital protocol. Analgesic options reviewed. Close maternal and surveillance. Anticipate normal spontaneous vaginal delivery. Review of Systems Constitutional: Reports as per HPI Past Medical History Past Medical History: No Reported History History of Any Multi-Drug Resistant Organisms: None Reported Past Surgical History: No Surgical Hx Reported Additional Past Surgical History / Comment(s): wisdom teeth removed Past Anesthesia/Blood Transfusion Reactions: Unable to Obtain Additional Past Anesthesia/Blood Transfusion Reaction / Comment(s): no previous blood transfusion Past Psychological History: Depression Smoking Status: Never smoker Past Alcohol Use History: None Reported Past Drug Use History: None Reported - Past Family History Father Family Medical History: Diabetes Mellitus Medications and Allergies Home Medications Medication Instructions Recorded Confirmed Type Aspirin 81 mg PO DAILY 12/11/21 12/12/21 History Pedi Multivit No.25/Folic Acid 300 mg PO DAILY 12/11/21 12/12/21 History [Flintstones Multivit Chew Tab] valACYclovir [Valtrex] 500 mg PO DAILY 12/11/21 12/12/21 History Allergies Allergy/AdvReac Type Severity Reaction Status Date / Time ciprofloxacin [From Cipro] Allergy Anaphylaxis Verified 12/12/21 06:29 levofloxacin [From Levaquin] Allergy Swelling Verified 12/12/21 06:29 Exam Vital Signs Temp Pulse Resp BP Pulse Ox 12/12/21 06:28 97.3 F L 83 18 107/57 96 Intake and Output 12/11/21 12/12/21 12/12/21 22:59 06:59 14:59 Other: Weight 91.626 kg See dictation under HPI please Results Result Diagrams: 12/12/21 06:49 Abnormal Lab Results - Last 24 Hours (Table) 12/12/21 Range/Units 06:49 RBC 3.75 L (3.80-5.40) m/uL Assessment and Plan Assessment: 39 and one sevenths week intrauterine , here for elective induction of labor. Positive HSV in history, no lesions at this time. Occasional variable decelerations noted, internal scalp lead applied, excellent overall variability. Plan: Continue close maternal and surveillance. Oxytocin per hospital protocol. Analgesic options reviewed. Anticipate normal spontaneous vaginal delivery. Time with Patient: Less than 30
[2021-12-12] MEDS ORDERED: ROPIVACAINE 100 MG, fentaNYL (PF). 200 MCG in SODIUM CHLORIDE 0.9% 76 ML EPIDURAL ONE (14:05)
[2021-12-12] MEDS ORDERED: HYDROCORTISONE 2.5% RECTAL CREAM 30 GM TUBE RECTAL PRN (15:18)
[2021-12-12] MEDS ORDERED: diphenhydrAMINE 50 MG/ML 1 ML VIAL IVP PRN ×2 (15:18)
[2021-12-12] MEDS ORDERED: ACETAMINOPHEN TAB 325 MG TAB PO PRN (15:18)
[2021-12-12] MEDS ORDERED: BENZOCAINE/MENTHOL SPRAY 1 GM/SPRAY AEROSOL TOPICAL PRN (15:18)
[2021-12-12] MEDS ORDERED: diphenhydrAMINE 50 MG CAP PO PRN (15:18)
[2021-12-12] MEDS ORDERED: SIMETHICONE 80 MG CHEWABLE PO PRN (15:18)
[2021-12-12] MEDS ORDERED: LANOLIN CREAM 5 GM TUBE TOPICAL PRN (15:18)
[2021-12-12] MEDS ORDERED: diphenhydrAMINE ELIXIR 25 MG/10 ML CUP PO PRN (15:18)
[2021-12-12] MEDS ORDERED: ZOLPIDEM 5 MG TAB PO PRN (15:18)
[2021-12-12] MEDS ORDERED: diphenhydrAMINE 25 MG CAP PO PRN (15:18)
--- NOTE | 2021-12-12 15:18 | P.PROBDLV ---
Vaginal Delivery Note - . Vaginal Delivery Note: This is a 26-year-old female 4 para 3003 EDC 12/19/2021 at 39 and one sevenths weeks' gestation. Patient presented earlier this morning for induction, she lives 1 hour away and had a favorable multiparous cervix. is remarkable for blood type A+, rubella status immune. Group B strep cultures negative. Please see dictated history and physical for details. Artificial amniorrhexis revealed clear fluid. Variable decelerations were noted through the first stage of labor, corrected with position changes. Patient requested and received an epidural. She became completely dilated and had a strong urge to push. Perineal body was prepped and draped in usual sterile fashion. With excellent maternal expulsive efforts the 's head delivered occiput anterior and he restituted accordingly. There was a very tight nuchal cord 1 that was able to be reduced. The left or anterior shoulder was then delivered from underneath the pubic symphysis at which time the oropharynx, nasopharynx, and external nares were all bulb suctioned. Patient was officially delivered of a liveborn male at 15 002 hours. The umbilical cord was doubly clamped and ligated. The cord was also noted wrapped around the right arm and shoulder quite tightly. Baby was handed to waiting nurses for evaluation where scores of 9 and 9 at one and 5 minutes respectively were given. The placenta delivered spontaneously, it was inspected and noted to be intact with trivascular cord at 1504 hrs. Uterus is then massaged. Careful inspection of cervix, vagina, perineum, periurethral, and perirectal areas revealed no lacerations or defects. weighs 6 lbs. 11 oz. or 3040 g. Patient is requesting circumcision for her son. Total estimated blood loss 200 mL's. Patient and her are allowed to begin the bonding experience in the LDR.
[2021-12-12] MEDS: SENNOSIDES-DOCUSATE SODIUM 1 EACH TAB PO SCH (21:26)
[2021-12-12] MEDS: IBUPROFEN 600 MG TAB PO SCH (21:26)
[2021-12-13 01:35] VITALS: RESP 20
[2021-12-13] MEDS: IBUPROFEN 600 MG TAB PO SCH ×4 (05:34→17:15)
--- NOTE | 2021-12-13 07:45 | P.DS ---
Providers Date of admission: 12/12/21 06:06 Expected date of discharge: 12/13/21 Attending physician: Tash Bruno Primary care physician: Stated None Hospital Course: This is a 26-year-old female 4 para 3003 who presented at 39+ weeks gestation for induction. Patient had a favorable multiparous cervix and lives over an hour away, with a history of rapid deliveries. Please see dictated history and physical for details. Blood type is A+, rubella status immune, group B strep cultures negative. Epidural was placed per her request and oxytocin was started and titrated. She went on to deliver vaginally a liveborn male with scores of 9 and 9 at one and 5 minutes respectively. There was a very tight nuchal cord as well as a cord around the upper body and arm. Infant weighed 6 lbs. 11 oz. or 3040 g. No episiotomy was performed, no lacerations or stitches required. Estimated blood loss 200 mL's. Please see my dictated delivery note for details This morning the patient is doing well. She is voiding, and bleeding, passing flatus without difficulty. Vital signs are stable and she is afebrile. Fundus is firm and in the midline, symmetric and 18 week size. Extremities are negative for edema. [place] is doing well, circumcision has been performed. Patient is judged to be in very good condition for discharge home. She is reminded to use [id number] Advil, Motrin or Aleve as needed for any cramping or pain. She will call with any fevers shakes or chills, foul smelling or copious lochia, with the passage of large blood clots, with any pain not alleviated by [id number] products, or indeed with any concerns. infant will follow-up with dredge pipe operator as per recommendations. Assessment: Doing well day #1 Patient Condition at Discharge: Good Plan - Discharge Summary Discharge Rx Participant: No New Discharge Prescriptions: No Action Pedi Multivit No.25/Folic Acid [Flintstones Multivit Chew Tab] 300 mg PO DAILY valACYclovir [Valtrex] 500 mg PO DAILY Aspirin 81 mg PO DAILY Discharge Medication List Aspirin 81 mg PO DAILY 12/11/21 [History] Pedi Multivit No.25/Folic Acid [Flintstones Multivit Chew Tab] 300 mg PO DAILY 12/11/21 [History] valACYclovir [Valtrex] 500 mg PO DAILY 12/11/21 [History] Follow up Appointment(s)/Referral(s): Tash Bruno MD [STAFF PHYSICIAN] - 6 Weeks Discharge Disposition: HOME SELF-CARE
[2021-12-13] MEDS: SENNOSIDES-DOCUSATE SODIUM 1 EACH TAB PO SCH (08:09)
[2021-12-13] MEDS: LACTATED RINGERS 1,000 ML IV SCH (13:13)
[2021-12-13 15:44] VITALS: BP 113/70; PULSE 67; TEMP 97.5
== END 2021-12-13 16:50 | disposition home or self-care (01) | DRG 807 ==
LOC: 4FBP 06:06
PROVIDERS: ADMIT Obstetrics & Gynecology; ATTEND Obstetrics & Gynecology
PROC: 10E0XZZ Delivery of Products of Conception, External Approach (ICD-10-PCS; principal; 2021-12-12)
DX: O98.52 Other viral diseases complicating childbirth (principal); Z37.0 Single live birth; B00.9 Herpesviral infection, unspecified; Z3A.39 39 weeks gestation of pregnancy; O69.1XX0 Labor and delivery complicated by cord around neck, with compression, not applicable or unspecified; O76 Abnormality in fetal heart rate and rhythm complicating labor and delivery; Z79.82 Long term (current) use of aspirin; Z82.49 Family history of ischemic heart disease and other diseases of the circulatory system; Z83.3 Family history of diabetes mellitus
CPT/HCPCS: 85025; 86850; 86900; 86901

== ENCOUNTER 2022-10-21 13:34 | Emergency (ER) | payer BC, OTHER ==
[2022-10-21 13:41] VITALS: BP 121/80; PULSE 101; RESP 18; TEMP 98.2
[2022-10-21 14:20] LABS: Appearance,Urine Clear (Clear); Bilirubin,Urine Negative (Negative); Blood,Urine Small (Negative); Color,Urine Yellow; Glucose,Urine (UA) Negative (Negative); Ketones,Urine Negative (Negative); Leukocyte Esterase,Urine Negative (Negative); Mucus,Urine Moderate /hpf; Nitrite,Urine Negative (Negative); PH, Urine 6.5 (5.0-8.0); Protein,Urine Trace (Negative); RBC,Urine <1 /hpf (0-5); Specific Gravity,Urine 1.032 (1.001-1.035); Squamous Epithelial Cell,Urine 3 /hpf (0-4); WBC,Urine 1 /hpf (0-5)
--- NOTE | 2022-10-21 14:25 | ED ---
General Adult HPI - General Chief complaint: Vaginal Bleeding Stated complaint: early , abd pain Time Seen by Provider: 10/21/22 13:44 Source: patient, RN notes reviewed Mode of arrival: ambulatory Limitations: no limitations - History of Present Illness Initial comments: This a 27-year-old female presents emergency Department with chief complaint of vaginal bleeding early . Patient states that she is A0 currently 8 weeks states her INSPECTOR OF [employer]EDGING is Dr. Bruno. Patient states that she started having some vaginal spotting, mild abdominal cramping. Patient states she's never had any like this in the past with her . Patient states she had a positive home test. Patient states that she's never received any RhoGAM in her prior pregnancies. She states she believes she is a positive blood type. Denies any nausea vomiting dysuria hematuria denies any rectal pain, bleeding diarrhea constipation. - Related Data Home Medications Medication Instructions Recorded Confirmed Aspirin 81 mg PO DAILY 12/11/21 12/12/21 Pedi Multivit No.25/Folic Acid 300 mg PO DAILY 12/11/21 12/12/21 [Flintstones Multivit Chew Tab] valACYclovir HCL [Valtrex] 500 mg PO DAILY 12/11/21 12/12/21 Allergies Allergy/AdvReac Type Severity Reaction Status Date / Time ciprofloxacin [From Cipro] Allergy Anaphylaxis Verified 12/12/21 06:29 levofloxacin [From Levaquin] Allergy Swelling Verified 12/12/21 06:29 Review of Systems ROS Statement: Those systems with pertinent positive or pertinent negative responses have been documented in the HPI. ROS Other: All systems not noted in ROS Statement are negative. Past Medical History Past Medical History: No Reported History History of Any Multi-Drug Resistant Organisms: None Reported Past Surgical History: No Surgical Hx Reported Additional Past Surgical History / Comment(s): wisdom teeth removed Past Anesthesia/Blood Transfusion Reactions: Unable to Obtain Additional Past Anesthesia/Blood Transfusion Reaction / Comment(s): no previous blood transfusion Past Psychological History: Depression Smoking Status: Never smoker Past Alcohol Use History: None Reported Past Drug Use History: None Reported - Past Family History Father Family Medical History: Diabetes Mellitus General Exam Limitations: no limitations General appearance: alert, in no apparent distress Head exam: Present: atraumatic, normocephalic, normal inspection Eye exam: Present: normal appearance, PERRL, EOMI. Absent: scleral icterus, conjunctival injection, periorbital swelling ENT exam: Present: normal exam, normal oropharynx, mucous membranes moist Neck exam: Present: normal inspection. Absent: tenderness, meningismus, lymphadenopathy Respiratory exam: Present: normal lung sounds bilaterally. Absent: respiratory distress, wheezes, rales, rhonchi, stridor Cardiovascular Exam: Present: regular rate, normal rhythm, normal heart sounds. Absent: systolic murmur, diastolic murmur, rubs, gallop, clicks GI/Abdominal exam: Present: soft, normal bowel sounds. Absent: distended, tenderness, guarding, rebound, rigid Back exam: Absent: CVA tenderness (R), CVA tenderness (L) Neurological exam: Present: alert Skin exam: Present: warm, dry, intact, normal color. Absent: rash Course Vital Signs 10/21/22 13:38 Temperature 98.2 F Pulse Rate 101 H Respiratory 18 Rate Blood Pressure 121/80 O2 Sat by Pulse 97 Oximetry Medical Decision Making - Medical Decision Making 27-year-old female presented for mild bleeding in early , abdominal pain. Ultrasound shows complex fluid collection to his right adnexa patient hCG is a 37, patient has no significant vaginal bleeding. Patient abdomen essentially nontender. I did have a long discussion with Dr. Bruno recommend patient have repeat hCG in 48 hours will follow-up on the fourth for further management, possible treatment of ectopic. Patient was given very strict return parameters and ectopic return. Was pt. sent in by a medical professional or institution? @ -no Did you speak to anyone other than the patient for history? @ -no Did you review nursing and triage notes? @ -agree and reviewed Were old charts reviewed? @ -no Differential Diagnosis? @ -Miscarriage, threatened miscarriage, normal , subchorionic hemorrha ge, ectopic EKG interpreted by me (3pts min.)? @ -no X-rays interpreted by me (1pt min.)? @ -no CT interpreted by me (1pt min.)? @ -no U/S interpreted by me (1pt. min.)? @ -Ultrasound OB uterus is empty, there is complex right ovarian cysts early ectopic on the right as possible mild free fluid in cul-de-sac What testing was considered but not performed? (CT, X-rays, U/S, labs)? Why? @No What meds were considered but not given? Why? @ -Methotrexate was considered given possible ectopic though will have repeat hCG prior. Did you discuss the management of the patient with other professionals? @ -Dr. Bruno INS[employer]OR OF [employer]EDG[employer] regarding possible ectopic versus ovarian cysts in early . Did you reconcile home meds? @ -no Was smoking cessation discussed for >3mins.? @ -no Was critical care preformed (if so, how long)? @ -no Were there social determinants of health that impacted care today? How? (Homelessness, low income, unemployed, alcoholism, drug addiction, transportation, low edu. Level, literacy, decrease access to med. care, alf, rehab)? @ -no Was there de-escalation of care discussed even if they declined? (Discuss DNR or withdrawal of care, Hospice)? @ -no What co-morbidities impacted this encounter? (DM, HTN, Smoking, COPD, CAD, Cancer, CVA, Hep., AIDS, mental health diagnosis, sleep apnea, morbid obesity)? @ -no Was patient admitted / discharged? @ -Discharge Undiagnosed new problem with uncertain prognosis? @ -yes, possible concern for ectopic Drug Therapy requiring intensive monitoring for toxicity (Heparin, Nitro, Insulin, Cardizem)? @ -no Were any procedures done? @ -no Diagnosis/symptom? @ - Acute, or Chronic, or Acute on Chronic? @ -Acute Uncomplicated (without systemic symptoms) or Complicated (systemic symptoms)? @ -Uncomplicated Side effects of treatment? @ -none Exacerbation, Progression, or Severe Exacerbation] @ -non Poses a threat to life or bodily function? @ yes possible ectopic] - Lab Data Lab Results 10/21/22 10/21/22 10/21/22 Range/Units 14:04 14:04 14:04 HCG, Quant 837.4 mIU/mL Urine Color Yellow Urine Appearance Clear (Clear) Urine pH 6.5 (5.0-8.0) Ur Specific [place] 1.032 (1.001-1.035) Urine Protein Trace H (Negative) Urine Glucose (UA) Negative (Negative) Urine Ketones Negative (Negative) Urine Blood Small H (Negative) Urine Nitrite Negative (Negative) Urine Bilirubin Negative (Negative) Urine Urobilinogen 4.0 (<2.0) mg/dL Ur Leukocyte Esterase Negative (Negative) Urine RBC <1 (0-5) /hpf Urine WBC 1 (0-5) /hpf Ur Squamous Epith Cells 3 (0-4) /hpf Urine Mucus Moderate H (None) /hpf Blood Type A Positive Blood Type Recheck A Pos Bld Type Recheck Status No Disposition Clinical Impression: Disposition: HOME SELF-CARE Condition: Stable Instructions (If sedation given, give patient instructions): Ectopic (DC) Additional Instructions: Please return to the Emergency Department if symptoms worsen or any other concerns. Is patient prescribed a controlled substance at d/c from ED?: No Referrals: None,Stated [Primary Care Provider] - 1-2 days Tash Bruno MD [STAFF PHYSICIAN] - 1-2 days Time of Disposition: 16:01
--- NOTE | 2022-10-21 15:14 | US ---
EXAMINATION TYPE: Transabdominal DATE OF EXAM: 10/21/2022 2:54 PM COMPARISON: NONE CLINICAL HISTORY: Positive test, pain and cramping. EXAM PERFORMED: Transvaginal (TV) and Transabdominal (TA) EXAM MEASUREMENTS: GESTATIONAL AGE / DATING Physician Established: Not yet established Dates by LMP: (2 weeks/2 days) EDC: 07/12/2023 Dates by First Scan: No previous this is first scan Dates by Current Scan for: No IUP seen at this time MATERNAL ANATOMY Uterus: wnl Right Ovary: wnl *Right Adnexa near right ovary presents a complex hypoechoic mass 2.4 X 1.7 X 1.9cm. Within this mas s is an anechoic circumscribed mass with echogenic periphery. Possible ectopic . Left Ovary: wnl (limited to TA view only) Post CDS / Adnexa: FF Presence of free fluid: Yes posterior cul-de-sac Presence of corpus luteal cyst: No Presence of subchorionic bleed: No GESTATION / SURVEY IUP: No IUP seen at this time Date of LMP: 07/12/2023 Beta HcG (if available): 837.4 IMPRESSION: The uterus is empty. There is a complex right ovarian cyst. Early ectopic on the right side is possible. There is some mild free fluid in the cul-de-sac. Exam was discussed with emergency room attending staff at 3:15 PM.
[2022-10-21 16:13] LABS: Basophils # (A) 0.1 k/uL (0-0.2); Basophils % (A) 1 %; Eosinophils # (A) 0.2 k/uL (0-0.7); Eosinophils % (A) 3 %; HCT 37.7 % (34.0-46.0); HGB 12.7 gm/dL (11.4-16.0); Lymphocytes # (A) 1.9 k/uL (1.0-4.8); Lymphocytes % (A) 21 %; MCH 29.4 pg (25.0-35.0); MCHC 33.8 g/dL (31.0-37.0); Mean Platelet Volume 8.7; Monocytes # (A) 0.4 k/uL (0-1.0); Monocytes % (A) 5 %; Neutrophils # (A) 6.1 k/uL (1.3-7.7); Neutrophils % (A) 69 %; Platelet Count 266 k/uL (150-450); RBC 4.34 m/uL (3.80-5.40); WBC 8.8 k/uL (3.8-10.6)
== END 2022-10-21 16:38 | disposition home or self-care (01) ==
LOC: EC 13:34
DX: O00.90 Unspecified ectopic pregnancy without intrauterine pregnancy (principal); O9A.511 Psychological abuse complicating pregnancy, first trimester; O99.711 Diseases of the skin and subcutaneous tissue complicating pregnancy, first trimester; F32.A Depression, unspecified; Z88.1 Allergy status to other antibiotic agents; Z3A.08 8 weeks gestation of pregnancy
CPT/HCPCS: 36415; 76801; 76817; 81001; 84702; 85025; 86900; 86901; 99284

== ENCOUNTER → 2022-10-23 | Outpatient (CLI) | payer OTHER | END | disposition home or self-care (01) | LOC: LABWHC1 08:25 | PROVIDERS: ATTEND Physician Assistant | DX: O20.0 Threatened abortion (principal); Z3A.00 Weeks of gestation of pregnancy not specified | CPT/HCPCS: 36415; 84702 ==

== ENCOUNTER → 2022-10-24 | Outpatient (CLI) | payer OTHER ==
[2022-10-24 19:25] LABS: African American GFR (CKD) 116.3 (60.0-200.0); Blood Urea Nitrogen 9.3 mg/dL (9.0-27.0); Non-African American GFR(CKD) 100.3 (60.0-200.0)
[2022-10-24 20:16] LABS: HCT 36.1 % (37.2-46.3); HGB 11.8 g/dL (12.0-15.0); MCHC 32.7 g/dL (32.0-37.0); MCV 88.7 fL (80.0-97.0); Mean Platelet Volume 11.5 fL (9.5-12.2); NRBC Per 100 WBC 0 /100 WBCS (0.0-0.0); Platelet Count 274 X 10*3/uL (140-440); RBC 4.07 X 10*6/uL (4.10-5.20); RDW 13.2 % (11.5-14.5); WBC 6.53 X 10*3/uL (4.50-10.00)
== END | disposition home or self-care (01) ==
LOC: LABWHC1 11:14
PROVIDERS: ATTEND Obstetrics & Gynecology
DX: O00.101 Right tubal pregnancy without intrauterine pregnancy (principal); Z3A.00 Weeks of gestation of pregnancy not specified
CPT/HCPCS: 36415; 82565; 84450; 84460; 84520; 84702; 85027

== ENCOUNTER → 2022-10-24 | Outpatient (CLI) | payer OTHER ==
[~2022-10-24] MED LIST: METHOTREXATE SODIUM (PF) 25 MG/ML 2 ML VIAL IM NR
[2022-10-24 13:01] VITALS: BP 100/68; PULSE 78; RESP 16; TEMP 98.4
== END ==
LOC: PROCWHC3 12:07
PROVIDERS: ATTEND Obstetrics & Gynecology
DX: O00.109 Unspecified tubal pregnancy without intrauterine pregnancy (principal); Z88.1 Allergy status to other antibiotic agents

== ENCOUNTER → 2022-10-27 | Outpatient (CLI) | payer OTHER | END | disposition home or self-care (01) | LOC: LABWHC1 09:00 | PROVIDERS: ATTEND Obstetrics & Gynecology | DX: O00.109 Unspecified tubal pregnancy without intrauterine pregnancy (principal); Z3A.00 Weeks of gestation of pregnancy not specified | CPT/HCPCS: 36415; 84702 ==

== ENCOUNTER → 2022-10-30 | Outpatient (CLI) | payer BC, OTHER ==
[2022-10-30 08:28] LABS: HCT 36.1 % (34.0-46.0); HGB 12.2 gm/dL (11.4-16.0); MCH 29.9 pg (25.0-35.0); MCHC 33.7 g/dL (31.0-37.0); MCV 88.7 fL (80.0-100.0); Mean Platelet Volume 8.8; Platelet Count 264 k/uL (150-450); RBC 4.07 m/uL (3.80-5.40); RDW 12.7 % (11.5-15.5); WBC 5.7 k/uL (3.8-10.6)
[2022-10-30 08:37] LABS: ALT 14 U/L (4-34); AST 19 U/L (14-36); African American GFR (CKD) >90 (>60 ml/min/1.73 sqM); Blood Urea Nitrogen 14 mg/dL (7-17); Non-African American GFR(CKD) >90 (>60 ml/min/1.73 sqM)
[2022-10-30 08:55] LABS: HCG,Quantitative Serum 1201.7 mIU/mL
== END | disposition home or self-care (01) ==
LOC: LABWHC1 07:56
PROVIDERS: ATTEND Obstetrics & Gynecology
DX: O00.109 Unspecified tubal pregnancy without intrauterine pregnancy (principal); Z3A.00 Weeks of gestation of pregnancy not specified
CPT/HCPCS: 36415; 82565; 84450; 84460; 84520; 84702; 85027

== ENCOUNTER → 2022-11-06 | Outpatient (CLI) | payer BC, OTHER | END | disposition home or self-care (01) | LOC: LABWHC1 08:07 | PROVIDERS: ATTEND Obstetrics & Gynecology | DX: O00.109 Unspecified tubal pregnancy without intrauterine pregnancy (principal); Z3A.00 Weeks of gestation of pregnancy not specified | CPT/HCPCS: 36415; 84702 ==

== ENCOUNTER → 2022-11-13 | Outpatient (CLI) | payer BC, OTHER | END | disposition home or self-care (01) | LOC: LABWHC1 08:11 | PROVIDERS: ATTEND Obstetrics & Gynecology | DX: O00.90 Unspecified ectopic pregnancy without intrauterine pregnancy (principal); Z3A.00 Weeks of gestation of pregnancy not specified | CPT/HCPCS: 36415; 84702 ==

== ENCOUNTER 2023-05-19 07:14 | Emergency (ER) | payer BC, OTHER ==
[2023-05-19 07:20] VITALS: RESP 18; TEMP 98
[2023-05-19] MEDS ORDERED: SODIUM CHLORIDE 0.9% 1,000 ML IV STA (07:33)
[2023-05-19] MEDS ORDERED: SODIUM CHLORIDE 0.9% 500 ML 500 ML IV STA (07:33)
--- NOTE | 2023-05-19 07:35 | ED ---
General Adult HPI - General Chief complaint: Syncope Stated complaint: Syncope Time Seen by Provider: 05/19/23 07:23 Source: patient, EMS, RN notes reviewed Mode of arrival: EMS Limitations: no limitations - History of Present Illness Initial comments: 28-year-old female presents emergency Department chief complaint of possible syncopal episode. Patient states that she has been sick since Saturday with a sore throat she went to urgent care on Saturday in which she had a negative mono negative strep was placed on amoxicillin for probable strep pharyngitis. She states not been eating and drinking as well because of her sore throat. She reports fevers. She states today she started feeling very lightheaded, dizzy states that erythema black and blue she had passed out. She denies any chest pain states that she had mild diarrhea without evidence of vomiting, current nausea no melena hematochezia. Patient denies any significant past medical his tory. - Related Data Allergies Allergy/AdvReac Type Severity Reaction Status Date / Time ciprofloxacin [From Cipro] Allergy Anaphylaxis Verified 10/24/22 12:54 levofloxacin [From Levaquin] Allergy Swelling Verified 10/24/22 12:54 Review of Systems ROS Statement: Those systems with pertinent positive or pertinent negative responses have been documented in the HPI. ROS Other: All systems not noted in ROS Statement are negative. Past Medical History Past Medical History: No Reported History History of Any Multi-Drug Resistant Organisms: None Reported Past Surgical History: No Surgical Hx Reported Additional Past Surgical History / Comment(s): wisdom teeth removed Past Anesthesia/Blood Transfusion Reactions: Unable to Obtain Additional Past Anesthesia/Blood Transfusion Reaction / Comment(s): no previous blood transfusion Past Psychological History: Depression Smoking Status: Never smoker Past Alcohol Use History: None Reported Past Drug Use History: None Reported - Past Family History Father Family Medical History: Diabetes Mellitus General Exam Limitations: no limitations General appearance: alert, in no apparent distress Head exam: Present: atraumatic, normocephalic, normal inspection Eye exam: Present: normal appearance, PERRL, EOMI. Absent: scleral icterus, conjunctival injection, periorbital swelling ENT exam: Present: mucous membranes moist, TM's normal bilaterally. Absent: normal exam, normal oropharynx (Erythematous posterior pharynx with exudates noted) Neck exam: Present: normal inspection, full ROM. Absent: tenderness, meningismus, lymphadenopathy Respiratory exam: Present: normal lung sounds bilaterally. Absent: respiratory distress, wheezes, rales, rhonchi, stridor Cardiovascular Exam: Present: regular rate, normal rhythm, normal heart sounds. Absent: systolic murmur, diastolic murmur, rubs, gallop, clicks GI/Abdominal exam: Present: soft, normal bowel sounds. Absent: distended, tenderness, guarding, rebound, rigid Neurological exam: Present: alert, oriented X3, CN II-XII intact, reflexes normal. Absent: motor sensory deficit Course Vital Signs 05/19/23 05/19/23 07:17 10:00 Temperature 98.0 F Pulse Rate 84 78 Respiratory 18 18 Rate Blood Pressure 115/71 117/74 O2 Sat by Pulse 96 99 Oximetry EKG Findings - EKG Comments: EKG Findings:: EKG performed 8:13 sinus rhythm rate of 76 [place] 131 QRS 104 QT/QTC 371/402 - EKG Results: EKG: interpreted by [facility] Medical Decision Making - Medical Decision Making Was pt. sent in by a medical professional or institution (, PA, MAINTENANCE OPERATOR, urgent care, hospital, or fdc...) When possible be specific @ -No Did you speak to anyone other than the patient for history (EMS, parent, family, police, friend...)? What history was obtained from this source @ -No Did you review nursing and triage notes (agree or disagree)? Why? @ -I reviewed and agree with nursing and triage notes Were old charts reviewed (outside hosp., previous admission, EMS record, old EKG, old radiological studies, urgent care reports/EKG's, fdc records)? Report findings @ -No old charts were reviewed Differential Diagnosis (chest pain, altered mental status, abdominal pain women, abdominal pain men, vaginal bleeding, weakness, fever, dyspnea, syncope, headache, dizziness, GI bleed, back pain, seizure, CVA, palpatations, mental health, musculoskeletal)? @ -Differential Syncope: Valvular disease, hypertrophic cardiomyopathy, pulmonary embolism, tamponade, tachycardia, bradycardia, [place], hypovolemia, hemorrhage, dissection, anemia, intracranial hemorrhage, seizure, hypoglycemia, carbon monoxide poisoning, this is not meant to be an all-inclusive list.ble EKG interpreted by me (3pts min.). @ -As above X-rays interpreted by me (1pt min.). @ -None done CT interpreted by me (1pt min.). @ -None done U/S interpreted by me (1pt. min.). @ -None done What testing was considered but not performed or refused? (CT, X-rays, U/S, labs)? Why? @ -None What meds were considered but not given or refused? Why? @ -None Did you discuss the management of the patient with other professionals (professionals i.e. , PA, MAINTENANCE OPERATOR, lab, RT, psych nurse, social insurance adviser, material chaser, teacher, aviation safety officer, outsole caser)? Give summary @ -No Was smoking cessation discussed for >3mins.? @ -No Was critical care preformed (if so, how long)? @ -No Were there social determinants of health that impacted care today? How? (Homelessness, low income, unemployed, alcoholism, drug addiction, transportation, low edu. Level, literacy, decrease access to med. care, long-term, rehab)? @ -No Was there de-escalation of care discussed even if they declined (Discuss DNR or withdrawal of care, Hospice)? DNR status @ -No What co-morbidities impacted this encounter? (DM, HTN, Smoking, COPD, CAD, Cancer, CVA, ARF, Chemo, Hep., AIDS, mental health diagnosis, sleep apnea, morbid obesity)? @ -None Was patient admitted / discharged? Hospital course, mention meds given and rout e, prescriptions, significant lab abnormalities, going to OR and other pertinent info. @ -Discharge patient was well hydrated, feels greatly improved. Patient workup is negative. I do with this is vasovagal syncope, dehydration. Patient agrees to plan discharge vision is currently on antibiotics for her pharyngitis. Undiagnosed new problem with uncertain prognosis? @ -No Drug Therapy requiring intensive monitoring for toxicity (Heparin, Nitro, Insulin, Cardizem)? @ -No Were any procedures done? @ -No Diagnosis/symptom? @ -Syncope, pharyngitis Acute, or Chronic, or Acute on Chronic? @ -Acute Uncomplicated (without systemic symptoms) or Complicated (systemic symptoms)? @ -complicated Side effects of treatment? @ -No Exacerbation, Progression, or Severe Exacerbation? @ -No] Poses a threat to life or bodily function? How? (Chest pain, [place], [place], pneumonia, PE, COPD, DKA, ARF, appy, cholecystitis, CVA, Diverticulitis, Homicidal, Suicidal, threat to staff... and all critical care pts) @ -[No] - Lab Data Result diagrams: 05/19/23 07:51 05/19/23 07:51 Lab Results 05/19/23 05/19/23 05/19/23 Range/Units 07:51 07:51 07:51 WBC 9.8 (3.8-10.6) k/uL RBC 3.91 (3.80-5.40) m/uL Hgb 12.2 (11.4-16.0) gm/dL Hct 35.4 (34.0-46.0) % MCV 90.5 (80.0-100.0) fL MCH 31.1 (25.0-35.0) pg MCHC 34.4 (31.0-37.0) g/dL RDW 12.7 (11.5-15.5) % Plt Count 227 (150-450) k/uL MPV 9.2 Neutrophils % 78 % Lymphocytes % 11 % Monocytes % 8 % Eosinophils % 1 % Basophils % 1 % Neutrophils # 7.7 (1.3-7.7) k/uL Lymphocytes # 1.1 (1.0-4.8) k/uL Monocytes # 0.7 (0-1.0) k/uL Eosinophils # 0.1 (0-0.7) k/uL Basophils # 0.1 (0-0.2) k/uL Sodium (137-145) mmol/L Potassium (3.5-5.1) mmol/L Chloride (98-107) mmol/L Carbon Dioxide (22-30) mmol/L Anion Gap mmol/L BUN (7-17) mg/dL Creatinine (0.52-1.04) mg/dL Est GFR (CKD-EPI)AfAm (>60 ml/min/1.73 sqM) Est GFR (CKD-EPI)NonAf (>60 ml/min/1.73 sqM) Glucose (74-99) mg/dL Calcium (8.4-10.2) mg/dL Total Bilirubin (0.2-1.3) mg/dL AST (14-36) U/L ALT (4-34) U/L Alkaline Phosphatase (38-126) U/L Total Protein (6.3-8.2) g/dL Albumin (3.5-5.0) g/dL Urine Color Yellow Urine Appearance Clear (Clear) Urine pH 6.0 (5.0-8.0) Ur Specific [place] 1.020 (1.001-1.035) Urine Protein Trace (Negative) Urine Glucose (UA) Negative (Negative) Urine Ketones 2+ (Negative) Urine Blood Small (Negative) Urine Nitrite Negative (Negative) Urine Bilirubin Negative (Negative) Urine Urobilinogen 2.0 (<2.0) mg/dL Ur Leukocyte Esterase Negative (Negative) Urine RBC 1 (0-5) /hpf Urine WBC 3 (0-5) /hpf Urine Bacteria Moderate H (None) /hpf Urine HCG, Qual (Not Detectd) Heterophile Antibody Negative (Negative) Group A Strep (PCR) (Not Detectd) 05/19/23 05/19/23 05/19/23 Range/Units 07:51 07:51 07:51 WBC (3.8-10.6) k/uL RBC (3.80-5.40) m/uL Hgb (11.4-16.0) gm/dL Hct (34.0-46.0) % MCV (80.0-100.0) fL MCH (25.0-35.0) pg MCHC (31.0-37.0) g/dL RDW (11.5-15.5) % Plt Count (150-450) k/uL MPV Neutrophils % % Lymphocytes % % Monocytes % % Eosinophils % % Basophils % % Neutrophils # (1.3-7.7) k/uL Lymphocytes # (1.0-4.8) k/uL Monocytes # (0-1.0) k/uL Eosinophils # (0-0.7) k/uL Basophils # (0-0.2) k/uL Sodium 138 (137-145) mmol/L Potassium 3.5 (3.5-5.1) mmol/L Chloride 106 (98-107) mmol/L Carbon Dioxide 26 (22-30) mmol/L Anion Gap 6 mmol/L BUN 8 (7-17) mg/dL Creatinine 0.71 (0.52-1.04) mg/dL Est GFR (CKD-EPI)AfAm >90 (>60 ml/min/1.73 sqM) Est GFR (CKD-EPI)NonAf >90 (>60 ml/min/1.73 sqM) Glucose 104 H (74-99) mg/dL Calcium 8.1 L (8.4-10.2) mg/dL Total Bilirubin 0.4 (0.2-1.3) mg/dL AST 18 (14-36) U/L ALT 13 (4-34) U/L Alkaline Phosphatase 51 (38-126) U/L Total Protein 6.6 (6.3-8.2) g/dL Albumin 3.6 (3.5-5.0) g/dL Urine Color Urine Appearance (Clear) Urine pH (5.0-8.0) Ur Specific [place] (1.001-1.035) Urine Protein (Negative) Urine Glucose (UA) (Negative) Urine Ketones (Negative) Urine Blood (Negative) Urine Nitrite (Negative) Urine Bilirubin (Negative) Urine Urobilinogen (<2.0) mg/dL Ur Leukocyte Esterase (Negative) Urine RBC (0-5) /hpf Urine WBC (0-5) /hpf Urine Bacteria (None) /hpf Urine HCG, Qual Not Detected (Not Detectd) Heterophile Antibody (Negative) Group A Strep (PCR) NOT DETECTED (Not Detectd) Disposition Clinical Impression: Syncope, Acute pharyngitis, Dehydration Disposition: HOME SELF-CARE Condition: Stable Instructions (If sedation given, give patient instructions): Syncope (ED) Additional Instructions: Please return to the Emergency Department if symptoms worsen or any other concerns. Is patient prescribed a controlled substance at d/c from ED?: No Referrals: None,Stated [Primary Care Provider] - 1-2 days Time of Disposition: 11:09
[2023-05-19 08:37] LABS: ALT 13 U/L (4-34); AST 18 U/L (14-36); African American GFR (CKD) >90 (>60 ml/min/1.73 sqM); Albumin 3.6 g/dL (3.5-5.0); Alkaline Phosphatase 51 U/L (38-126); Anion Gap 6 mmol/L; Blood Urea Nitrogen 8 mg/dL (7-17); Calcium 8.1 mg/dL (8.4-10.2); Carbon Dioxide 26 mmol/L (22-30); Chloride 106 mmol/L (98-107); Glucose 104 mg/dL (74-99); Non-African American GFR(CKD) >90 (>60 ml/min/1.73 sqM); Potassium 3.5 mmol/L (3.5-5.1); Sodium 138 mmol/L (137-145); Total Bilirubin 0.4 mg/dL (0.2-1.3); Total Protein 6.6 g/dL (6.3-8.2)
[2023-05-19 09:38] LABS: Basophils # (A) 0.1 k/uL (0-0.2); Basophils % (A) 1 %; Eosinophils # (A) 0.1 k/uL (0-0.7); Eosinophils % (A) 1 %; HCT 35.4 % (34.0-46.0); HGB 12.2 gm/dL (11.4-16.0); Lymphocytes # (A) 1.1 k/uL (1.0-4.8); Lymphocytes % (A) 11 %; MCH 31.1 pg (25.0-35.0); MCHC 34.4 g/dL (31.0-37.0); MCV 90.5 fL (80.0-100.0); Mean Platelet Volume 9.2; Monocytes # (A) 0.7 k/uL (0-1.0); Monocytes % (A) 8 %; Neutrophils # (A) 7.7 k/uL (1.3-7.7); Neutrophils % (A) 78 %; Platelet Count 227 k/uL (150-450); RBC 3.91 m/uL (3.80-5.40); RDW 12.7 % (11.5-15.5); WBC 9.8 k/uL (3.8-10.6)
[2023-05-19 10:47] VITALS: PULSE 78
[2023-05-19 11:02] LABS: Appearance,Urine Clear (Clear); Bilirubin,Urine Negative (Negative); Blood,Urine Small (Negative); Color,Urine Yellow; Glucose,Urine (UA) Negative (Negative); Ketones,Urine 2+ (Negative); Protein,Urine Trace (Negative)
[2023-05-19 11:03] LABS: Bacteria,Urine Moderate /hpf; Leukocyte Esterase,Urine Negative (Negative); Nitrite,Urine Negative (Negative); RBC,Urine 1 /hpf (0-5); WBC,Urine 3 /hpf (0-5)
[2023-05-19 11:35] VITALS: BP 122/74
== END 2023-05-19 11:37 | disposition home or self-care (01) ==
LOC: EC 07:14
DX: R55 Syncope and collapse (principal); J02.9 Acute pharyngitis, unspecified; E86.0 Dehydration; Z88.1 Allergy status to other antibiotic agents; Z86.59 Personal history of other mental and behavioral disorders
CPT/HCPCS: 36415; 80053; 81001; 81025; 85025; 86308; 87651; 93005; 96360; 96361; 99284

== ENCOUNTER 2023-10-28 15:00 | Emergency (ER) | payer BC, OTHER ==
[2023-10-28 16:01] VITALS: RESP 18
[2023-10-28 16:16] LABS: Appearance,Urine Clear (Clear); Bacteria,Urine Rare /hpf; Bilirubin,Urine Negative (Negative); Blood,Urine Negative (Negative); Color,Urine Colorless; Glucose,Urine (UA) Negative (Negative); Ketones,Urine Negative (Negative); Leukocyte Esterase,Urine Trace (Negative); Mucus,Urine Rare /hpf; Nitrite,Urine Negative (Negative); PH, Urine 6.5 (5.0-8.0); Protein,Urine Negative (Negative); RBC,Urine 1 /hpf (0-5); Specific Gravity,Urine 1.006 (1.001-1.035); Squamous Epithelial Cell,Urine 1 /hpf (0-4); Urobilinogen,Urine <2.0 mg/dL (<2.0); WBC,Urine 1 /hpf (0-5)
--- NOTE | 2023-10-28 16:41 | ED ---
General Adult HPI - General Chief complaint: Chest Pain Stated complaint: SOB Time Seen by Provider: 10/28/23 16:17 Source: patient, RN notes reviewed Mode of arrival: ambulatory Limitations: no limitations - History of Present Illness Initial comments: 28-year-old female presents to the emergency department for evaluation of shortness of breath. She admits that this has been going on for around 1 month. Patient admits to occasional chest pressure. She states this is worse when she is lying down. Patient admits to some shortness of breath. She states that she has been under a lot of stress recently and is unsure if this is a factor. She has cough, congestion, fever, chills, nausea, vomiting. - Related Data Allergies Allergy/AdvReac Type Severity Reaction Status Date / Time ciprofloxacin [From Cipro] Allergy Anaphylaxis Verified 10/28/23 15:45 levofloxacin [From Levaquin] Allergy Swelling Verified 10/28/23 15:45 Review of Systems ROS Statement: Those systems with pertinent positive or pertinent negative responses have been documented in the HPI. ROS Other: All systems not noted in ROS Statement are negative. Past Medical History Past Medical History: No Reported History History of Any Multi-Drug Resistant Organisms: None Reported Past Surgical History: No Surgical Hx Reported Additional Past Surgical History / Comment(s): wisdom teeth removed Past Anesthesia/Blood Transfusion Reactions: Unable to Obtain Additional Past Anesthesia/Blood Transfusion Reaction / Comment(s): no previous blood transfusion Past Psychological History: Depression Smoking Status: Never smoker Past Alcohol Use History: None Reported Past Drug Use History: None Reported - Past Family History Father Family Medical History: Diabetes Mellitus General Exam Limitations: no limitations General appearance: alert, in no apparent distress Head exam: Present: atraumatic, normocephalic, normal inspection Eye exam: Present: normal appearance, PERRL, EOMI. Absent: scleral icterus, conjunctival injection, periorbital swelling ENT exam: Present: normal exam, mucous membranes moist Neck exam: Present: normal inspection. Absent: tenderness, meningismus, lymphadenopathy Respiratory exam: Present: normal lung sounds bilaterally. Absent: respiratory distress, wheezes, rales, rhonchi, stridor Cardiovascular Exam: Present: regular rate, normal rhythm, normal heart sounds. Absent: systolic murmur, diastolic murmur, rubs, gallop, clicks GI/Abdominal exam: Present: soft, normal bowel sounds. Absent: distended, tenderness, guarding, rebound, rigid Extremities exam: Present: normal inspection, full ROM, normal capillary refill. Absent: tenderness, pedal edema, joint swelling, calf tenderness Back exam: Present: normal inspection Neurological exam: Present: alert, oriented X3, CN II-XII intact Psychiatric exam: Present: normal affect, normal mood Skin exam: Present: warm, dry, intact, normal color. Absent: rash Course Vital Signs 10/28/23 10/28/23 15:42 20:03 Temperature 98.8 F 98.6 F Pulse Rate 73 72 Respiratory 18 18 Rate Blood Pressure 125/68 110/69 O2 Sat by Pulse 100 100 Oximetry Medical Decision Making - Medical Decision Making Was pt. sent in by a medical professional or institution (CARLOS Carreno, FAMILY REUNIFICATION SPECIALIST, urgent care, hospital, or care home...) When possible be specific @ -Urgent care Did you speak to anyone other than the patient for history (EMS, parent, family, police, friend...)? What history was obtained from this source @ -No Did you review nursing and triage notes (agree or disagree)? Why? @ -I reviewed and agree with nursing and triage notes Were old charts reviewed (outside hosp., previous admission, EMS record, old EKG, old radiological studies, urgent care reports/EKG's, care home records)? Report findings @ -No old charts were reviewed Differential Diagnosis (chest pain, altered mental status, abdominal pain women, abdominal pain men, vaginal bleeding, weakness, fever, dyspnea, syncope, headache, dizziness, GI bleed, back pain, seizure, CVA, palpatations, mental health, musculoskeletal)? @ -Differential Dyspnea: Coronary syndrome, arrhythmia, tamponade, asthma, COPD, pulmonary embolism, p neumonia, pneumothorax, pulmonary effusion, anaphylaxis, diabetic ketoacidosis, flailed chest, pulmonary contusion, diaphragmatic rupture, anemia, neuromuscular, this is not meant to be an all-inclusive list. EKG interpreted by me (3pts min.). @ -EKG at 1605 shows sinus rhythm rate 68, [place] 124, QRS 101, QTQTc 899103 X-rays interpreted by me (1pt min.). @ -chest xr shows no acute infiltrate CT interpreted by me (1pt min.). @ -CT chest for PE shows no evidence of pulmonary embolism U/S interpreted by me (1pt. min.). @ -None done What testing was considered but not performed or refused? (CT, X-rays, U/S, labs)? Why? @ -None What meds were considered but not given or refused? Why? @ -None Did you discuss the management of the patient with other professionals (professionals i.e. Dr., PA, FAMILY REUNIFICATION SPECIALIST, lab, RT, psych nurse, psychotherapist social worker, computational linguist, teacher, upscale security officer, heel caser)? Give summary @ -No Was smoking cessation discussed for >3mins.? @ -No Was critical care preformed (if so, how long)? @ -No Were there social determinants of health that impacted care today? How? (Homelessness, low income, unemployed, alcoholism, drug addiction, transportation, low edu. Level, literacy, decrease access to med. care, care home, rehab)? @ -No Was there de-escalation of care discussed even if they declined (Discuss DNR or withdrawal of care, Hospice)? DNR status @ -No What co-morbidities impacted this encounter? (DM, HTN, Smoking, COPD, CAD, Cancer, CVA, ARF, Chemo, Hep., AIDS, mental health diagnosis, sleep apnea, morbid obesity)? @ -None Was patient admitted / discharged? Hospital course, mention meds given and route, prescriptions, significant lab abnormalities, going to OR and other pertinent info. @ -Discharged. Patient presented to the emergency department for evaluation of shortness of breath while lying down. On examination, patient is well- appearing, no respiratory distress. EKG obtained which shows no ST elevation or depression. Laboratory studies obtained CBC, CMP essentially unremarkable, d- dimer 0.23, troponin less than 0.012; UA shows negative nitrate, trace leukocyte esterase; negative quant hcg. CT chest for PE obtained which shows no acute pulmonary embolism. This findings with patient and advised follow-up with her PCP. Patient has a remote plan. Patient stable at time of discharge. Case discussed with Dr. Harrington. Undiagnosed new problem with uncertain prognosis? @ -No Drug Therapy requiring intensive monitoring for toxicity (Heparin, Nitro, Insulin, Cardizem)? @ -No Were any procedures done? @ -No Diagnosis/symptom? @ -shortness of breath Acute, or Chronic, or Acute on Chronic? @ -acute Uncomplicated (without systemic symptoms) or Complicated (systemic symptoms)? @ -uncomplicated Side effects of treatment? @ -No Exacerbation, Progression, or Severe Exacerbation? @ -No Poses a threat to life or bodily function? How? (Chest pain, [place], [place], pneumonia, PE, COPD, DKA, ARF, appy, cholecystitis, CVA, Diverticulitis, Homicidal, Suicidal, threat to staff... and all critical care pts) @ -No - Lab Data Result diagrams: 10/28/23 16:55 10/28/23 16:55 Lab Results 10/28/23 10/28/23 10/28/23 Range/Units 15:52 16:55 16:55 WBC 7.5 (3.8-10.6) k/uL RBC 4.34 (3.80-5.40) m/uL Hgb 13.0 (11.4-16.0) gm/dL Hct 39.0 (34.0-46.0) % MCV 89.9 (80.0-100.0) fL MCH 29.8 (25.0-35.0) pg MCHC 33.2 (31.0-37.0) g/dL RDW 13.0 (11.5-15.5) % Plt Count 279 (150-450) k/uL MPV 8.1 Neutrophils % 54 % Lymphocytes % 31 % Monocytes % 5 % Eosinophils % 7 % Basophils % 1 % Neutrophils # 4.1 (1.3-7.7) k/uL Lymphocytes # 2.3 (1.0-4.8) k/uL Monocytes # 0.4 (0-1.0) k/uL Eosinophils # 0.6 (0-0.7) k/uL Basophils # 0.1 (0-0.2) k/uL PT 10.9 (10.0-12.5) sec INR 1.0 (<1.2) APTT 25.9 (22.0-30.0) sec D-Dimer 0.23 (<0.60) mg/L FEU Sodium (137-145) mmol/L Potassium (3.5-5.1) mmol/L Chloride (98-107) mmol/L Carbon Dioxide (22-30) mmol/L Anion Gap mmol/L BUN (7-17) mg/dL Creatinine (0.52-1.04) mg/dL Est GFR (CKD-EPI)AfAm (>60 ml/min/1.73 sqM) Est GFR (CKD-EPI)NonAf (>60 ml/min/1.73 sqM) Glucose (74-99) mg/dL Plasma Lactic Acid Juan (0.7-2.0) mmol/L Calcium (8.4-10.2) mg/dL Total Bilirubin (0.2-1.3) mg/dL AST (14-36) U/L ALT (4-34) U/L Alkaline Phosphatase (38-126) U/L Troponin I (0.000-0.034) ng/mL Total Protein (6.3-8.2) g/dL Albumin (3.5-5.0) g/dL HCG, Quant mIU/mL Urine Color Colorless Urine Appearance Clear (Clear) Urine pH 6.5 (5.0-8.0) Ur Specific [place] 1.006 (1.001-1.035) Urine Protein Negative (Negative) Urine Glucose (UA) Negative (Negative) Urine Ketones Negative (Negative) Urine Blood Negative (Negative) Urine Nitrite Negative (Negative) Urine Bilirubin Negative (Negative) Urine Urobilinogen <2.0 (<2.0) mg/dL Ur Leukocyte Esterase Trace H (Negative) Urine RBC 1 (0-5) /hpf Urine WBC 1 (0-5) /hpf Ur Squamous Epith Cells 1 (0-4) /hpf Urine Bacteria Rare H (None) /hpf Urine Mucus Rare H (None) /hpf 10/28/23 10/28/23 10/28/23 Range/Units 16:55 16:55 16:55 WBC (3.8-10.6) k/uL RBC (3.80-5.40) m/uL Hgb (11.4-16.0) gm/dL Hct (34.0-46.0) % MCV (80.0-100.0) fL MCH (25.0-35.0) pg MCHC (31.0-37.0) g/dL RDW (11.5-15.5) % Plt Count (150-450) k/uL MPV Neutrophils % % Lymphocytes % % Monocytes % % Eosinophils % % Basophils % % Neutrophils # (1.3-7.7) k/uL Lymphocytes # (1.0-4.8) k/uL Monocytes # (0-1.0) k/uL Eosinophils # (0-0.7) k/uL Basophils # (0-0.2) k/uL PT (10.0-12.5) sec INR (<1.2) APTT (22.0-30.0) sec D-Dimer (<0.60) mg/L FEU Sodium 141 (137-145) mmol/L Potassium 4.0 (3.5-5.1) mmol/L Chloride 103 (98-107) mmol/L Carbon Dioxide 26 (22-30) mmol/L Anion Gap 12 mmol/L BUN 15 (7-17) mg/dL Creatinine 0.67 (0.52-1.04) mg/dL Est GFR (CKD-EPI)AfAm >90 (>60 ml/min/1.73 sqM) Est GFR (CKD-EPI)NonAf >90 (>60 ml/min/1.73 sqM) Glucose 99 (74-99) mg/dL Plasma Lactic Acid Juan 1.0 (0.7-2.0) mmol/L Calcium 9.5 (8.4-10.2) mg/dL Total Bilirubin 0.4 (0.2-1.3) mg/dL AST 22 (14-36) U/L ALT 14 (4-34) U/L Alkaline Phosphatase 47 (38-126) U/L Troponin I <0.012 (0.000-0.034) ng/mL Total Protein 7.6 (6.3-8.2) g/dL Albumin 4.5 (3.5-5.0) g/dL HCG, Quant <2.4 mIU/mL Urine Color Urine Appearance (Clear) Urine pH (5.0-8.0) Ur Specific [place] (1.001-1.035) Urine Protein (Negative) Urine Glucose (UA) (Negative) Urine Ketones (Negative) Urine Blood (Negative) Urine Nitrite (Negative) Urine Bilirubin (Negative) Urine Urobilinogen (<2.0) mg/dL Ur Leukocyte Esterase (Negative) Urine RBC (0-5) /hpf Urine WBC (0-5) /hpf Ur Squamous Epith Cells (0-4) /hpf Urine Bacteria (None) /hpf Urine Mucus (None) /hpf Disposition Clinical Impression: Shortness of breath Disposition: HOME SELF-CARE Condition: Stable Instructions (If sedation given, give patient instructions): Shortness of Breath (ED) Additional Instructions: Please follow up with your primary care provider. Return to the emergency department for new or worsening symptoms. Is patient prescribed a controlled substance at d/c from ED?: No Referrals: None,Stated [Primary Care Provider] - 1-2 days
[2023-10-28 17:13] LABS: Basophils # (A) 0.1 k/uL (0-0.2); Basophils % (A) 1 %; Eosinophils # (A) 0.6 k/uL (0-0.7); Eosinophils % (A) 7 %; Lymphocytes # (A) 2.3 k/uL (1.0-4.8); Lymphocytes % (A) 31 %; MCH 29.8 pg (25.0-35.0); MCHC 33.2 g/dL (31.0-37.0); MCV 89.9 fL (80.0-100.0); Mean Platelet Volume 8.1; Monocytes # (A) 0.4 k/uL (0-1.0); Monocytes % (A) 5 %; Neutrophils # (A) 4.1 k/uL (1.3-7.7); Neutrophils % (A) 54 %; Platelet Count 279 k/uL (150-450); RBC 4.34 m/uL (3.80-5.40); WBC 7.5 k/uL (3.8-10.6)
[2023-10-28 17:26] LABS: ALT 14 U/L (4-34); AST 22 U/L (14-36); African American GFR (CKD) >90 (>60 ml/min/1.73 sqM); Albumin 4.5 g/dL (3.5-5.0); Alkaline Phosphatase 47 U/L (38-126); Anion Gap 12 mmol/L; Blood Urea Nitrogen 15 mg/dL (7-17); Calcium 9.5 mg/dL (8.4-10.2); Carbon Dioxide 26 mmol/L (22-30); Chloride 103 mmol/L (98-107); Glucose 99 mg/dL (74-99); Non-African American GFR(CKD) >90 (>60 ml/min/1.73 sqM); Sodium 141 mmol/L (137-145); Total Bilirubin 0.4 mg/dL (0.2-1.3); Total Protein 7.6 g/dL (6.3-8.2)
[2023-10-28 17:36] LABS: Partial Thromboplastin Time 25.9 sec (22.0-30.0); Prothrombin Time 10.9 sec (10.0-12.5)
[2023-10-28 17:43] LABS: HCG,Quantitative Serum <2.4 mIU/mL
--- NOTE | 2023-10-28 18:19 | XR ---
EXAMINATION TYPE: XR chest 2V DATE OF EXAM: 10/28/2023 COMPARISON: 08/01/2021 INDICATION: Pain, short of breath TECHNIQUE: Frontal and lateral views of the chest are obtained. FINDINGS: The heart size is normal. The pulmonary vasculature is normal. The lungs are clear. IMPRESSION: 1. No acute pulmonary process.
--- NOTE | 2023-10-28 19:18 | CT ---
CT CHEST FOR PULMONARY EMBOLISM. EXAMINATION TYPE: CT chest angio for PE DATE OF EXAM: 10/28/2023 INDICATION: SOB. R/O PE. CT DLP: 327.3 mGycm, Automated exposure control for dose reduction was used. CONTRAST: Patient injected with 100 ml mL of Isovue 300. COMPARISON: None TECHNIQUE: CT of the chest is performed on a spiral scan at 2 mm thick sections. Study is performed with intravenous contrast timed for evaluation for pulmonary embolism. This will limit additional po rtions of the evaluation. 3-D MIP images reconstructed by the technologist are reviewed on the compu ter in the coronal and sagittal planes. Exam is suboptimal for pulmonary embolism evaluation of contr ast within the aorta and little contrast within the pulmonary veins. FINDINGS: No persistent filling defects are evident to suggest an acute pulmonary embolism. No mediastinal or hilar adenopathy enlarged by CT criteria is evident. The ascending aorta diameter at the level of the main pulmonary artery is 2.8 cm. The main pulmonary artery diameter at the bifur cation is 2 cm. Lung windows are clear. Limited CT section through the upper abdomen are unremarkable. IMPRESSION: 1. Nondiagnostic examination for pulmonary embolism.
[2023-10-28 20:11] VITALS: BP 110/69; PULSE 72; TEMP 98.6
== END 2023-10-28 20:08 | disposition home or self-care (01) ==
LOC: EC 15:00
DX: R06.02 Shortness of breath (principal); Z86.59 Personal history of other mental and behavioral disorders; Z88.1 Allergy status to other antibiotic agents
CPT/HCPCS: 36415; 85379; 80053; 83605; 84484; 85025; 85610; 85730; 81001; 84702; 71046; 71275; 99285; Q9967